=== PATIENT | male | born 1930 | race Caucasian/White ===

== ENCOUNTER → 2016-10-12 | Outpatient (CLI) | payer OTHER ==
[~2016-10-12] MED LIST: ACET1TAB84 PO; CMD1 PO; CMD4 PO; CSPOPS OPB; CYAN10005 PO; DLN100 PO; DORZ1SOL OPB; FURO80TA63 PO; LISI-725 PO; METO50TA7 PO; MULT-506 PO; POTA-335 PO; [UNRECOGNIZED DRUG - CODE] PO
[2016-10-12 09:56] LABS: HEMATOCRIT 39.3 % (42-52); MEAN CELL VOLUME 94.2 fL (80-100); MEAN CORPUSCULAR HEMOGLOBIN 30.7 pg (25-34); MEAN CORPUSCULAR HGB CONC 32.6 g/dl (32-36); MEAN PLATELET VOLUME 10.4 fL (7.4-10.4); PLATELET COUNT 174 K/uL (130-400); RED BLOOD COUNT 4.17 M/uL (4.7-6.1); WHITE BLOOD COUNT 7.64 K/uL (4.8-10.8)
[2016-10-12 10:58] LABS: BLOOD UREA NITROGEN 48 mg/dl (7-18); BUN/CREATININE RATIO 29.9 (10-20); CALCIUM 8.2 mg/dl (8.5-10.1); CARBON DIOXIDE 25 mmol/L (21-32); CHLORIDE 111 mmol/L (98-107); GLUCOSE 96 mg/dl (70-99); POTASSIUM 5.5 mmol/L (3.5-5.1); SODIUM 142 mmol/L (136-145)
[2016-10-12 15:22] LABS: URINE PROTIEN/CREAT RATIO 0.2 (0-0.2); URINE TOTAL PROTEIN 12.5 mg/dl (0-11.9)
== END | disposition home or self-care (01) ==
LOC: C.LAB1850 09:11
PROVIDERS: ATTEND Internal Medicine Nephrology
DX: N18.3 Chronic kidney disease, stage 3 (moderate) (principal); E55.9 Vitamin D deficiency, unspecified

== ENCOUNTER → 2017-02-06 | Outpatient (CLI) | payer OTHER ==
[2017-02-06 09:40] LABS: HEMATOCRIT 39.4 % (42-52); MEAN CORPUSCULAR HEMOGLOBIN 30.5 pg (25-34); MEAN CORPUSCULAR HGB CONC 32.5 g/dl (32-36); MEAN PLATELET VOLUME 10.7 fL (7.4-10.4); PLATELET COUNT 184 K/uL (130-400); RED BLOOD COUNT 4.19 M/uL (4.7-6.1)
[2017-02-06 10:11] LABS: ALT/SGPT 29 U/L (12-78); BLOOD UREA NITROGEN 38 mg/dl (7-18); BUN/CREATININE RATIO 28.9 (10-20); CALCIUM 8.2 mg/dl (8.5-10.1); CARBON DIOXIDE 26 mmol/L (21-32); CHLORIDE 106 mmol/L (98-107); GLUCOSE 66 mg/dl (70-99); POTASSIUM 4.9 mmol/L (3.5-5.1); SODIUM 139 mmol/L (136-145)
[2017-02-06 10:14] LABS: ALB/GLOB RATIO 0.8 (0.9-2); ALKALINE PHOSPHATASE 162 U/L (45-117); AST/SGOT 22 U/L (15-37)
[2017-02-06 10:41] LABS: URINE APPEARANCE CLEAR (CLEAR); URINE BILIRUBIN NEG (NEG); URINE COLOR YELLOW; URINE EPITHELIAL CELL AUTO 0-5 /lpf (0-5); URINE NITRITE NEG (NEG); URINE PH 6.5 (4.5-7.5); URINE SPECIFIC GRAVITY 1.011 (1.000-1.030); UROBILINOGEN NEG (NEG)
[2017-02-06 11:00] LABS: MANUAL MICROSCOPIC REQUIRED? NO; REVIEW REQ? NO
[2017-02-06 11:05] LABS: URINE PROTIEN/CREAT RATIO 0.2 (0-0.2); URINE TOTAL PROTEIN 6.7 mg/dl (0-11.9)
== END | disposition home or self-care (01) ==
LOC: C.LAB1850 08:24
PROVIDERS: ATTEND Internal Medicine Nephrology
DX: I12.9 Hypertensive chronic kidney disease with stage 1 through stage 4 chronic kidney disease, or unspecified chronic kidney disease (principal); N18.3 Chronic kidney disease, stage 3 (moderate); E55.9 Vitamin D deficiency, unspecified; N25.81 Secondary hyperparathyroidism of renal origin; R60.9 Edema, unspecified

== ENCOUNTER → 2017-08-22 | Outpatient (CLI) | payer OTHER ==
[~2017-08-22] MED LIST changes: -CMD4 PO; -METO50TA7 PO; +METO50TA8 PO
--- NOTE | 2017-08-22 13:13 | DIAGNOSTIC IMAGING REPORT ---
CT HEAD WITHOUT CONTRAST (CT) CLINICAL HISTORY: I48.91 Atrial [id number] Weakness of left side of [id number] COMPARISON STUDY: December 2007 TECHNIQUE: Axial CT of the brain is performed from the vertex to the skull base. IV contrast was not administered for this examination. A dose lowering technique was utilized adhering to the principles of ALARA. CT DOSE: 638.56 mGycm FINDINGS: No intra or extra-axial mass lesions are visualized. There is no CT evidence of acute cortical infarction. There is no evidence of midline shift. There is no acute hemorrhage. No calvarial fractures are visualized. There are patchy white matter hypodensities likely on a small vessel basis. There is no evidence of pathologic ventricular dilatation. There is no evidence of acute sinusitis IMPRESSION: No acute intracranial findings Electronically signed by: Deyvi Cheatham M.D. 08/22/2017 1:11 PM Dictated Date/Time: 08/22/2017 1:02 PM
== END | disposition home or self-care (01) ==
LOC: C.CTS 12:47
PROVIDERS: ATTEND Internal Medicine
DX: I48.91 Unspecified atrial fibrillation (principal); R53.1 Weakness; Z79.01 Long term (current) use of anticoagulants

== ENCOUNTER 2017-09-20 08:51 | Emergency (ER) | payer OTHER ==
[~2017-09-20] VITALS: Ht 172.7 cm; Wt 97.6 kg
[2017-09-20 09:05] VITALS: TEMP 36.5; O2SAT 95
[2017-09-20 09:47] LABS: BASO % 0.1 %; BASO ABS # 0.01 K/uL (0-0.2); EOS % 1.6 %; EOS ABS # 0.12 K/uL (0-0.5); HEMATOCRIT 38.3 % (42-52); HEMOGLOBIN 12.6 g/dL (14.0-18.0); IG# 0.02 K/uL (0.00-0.02); LYMPH % 27.9 %; LYMPH ABS # 2.12 K/uL (1.2-3.4); MEAN CELL VOLUME 94.1 fL (80-100); MEAN CORPUSCULAR HGB CONC 32.9 g/dl (32-36); MEAN PLATELET VOLUME 10.4 fL (7.4-10.4); MONO % 9.2 %; NEUT % 60.9 %; NEUT ABS # 4.64 K/uL (1.4-6.5); PLATELET COUNT 179 K/uL (130-400); RED CELL DISTRIBUTION WIDTH CV 15.6 % (11.5-14.5); WHITE BLOOD COUNT 7.61 K/uL (4.8-10.8)
[2017-09-20 09:55] LABS: INR 1.7 (0.9-1.1); PTT PATIENT 29.6 SECONDS (21.0-31.0)
[2017-09-20] MEDS ORDERED: DORZ2SOL17 OPB (09:56)
[2017-09-20] MEDS ORDERED: BCTROWC EXT (09:56)
[2017-09-20] MEDS ORDERED: POTA20TA16 PO (09:56)
[2017-09-20] MEDS ORDERED: DLN100 PO ×2 (09:56)
--- NOTE | 2017-09-20 10:00 | DIAGNOSTIC IMAGING REPORT ---
CT HEAD WITHOUT CONTRAST (CT) CLINICAL HISTORY: Altered mental status COMPARISON STUDY: August 22, 2017 TECHNIQUE: Axial CT of the brain is performed from the vertex to the skull base. IV contrast was not administered for this examination. A dose lowering technique was utilized adhering to the principles of ALARA. CT DOSE: 537.48 mGy.cm FINDINGS: No intra or extra-axial mass lesions are visualized. There is no CT evidence of acute cortical infarction. There is no evidence of midline shift. There is no acute hemorrhage. No calvarial fractures are visualized. There are patchy white matter hypodensities likely on a small vessel basis. There is no evidence of pathologic ventricular dilatation. There is no evidence of acute sinusitis IMPRESSION: No acute intracranial findings Electronically signed by: Deyvi Cheatham M.D. 09/20/2017 9:58 AM Dictated Date/Time: 09/20/2017 9:56 AM
[2017-09-20 10:08] LABS: ALBUMIN 3.3 gm/dl (3.4-5.0); ALT/SGPT 28 U/L (12-78); AST/SGOT 17 U/L (15-37); BLOOD UREA NITROGEN 48 mg/dl (7-18); CALCIUM 8.2 mg/dl (8.5-10.1); CARBON DIOXIDE 24 mmol/L (21-32); CREATININE 1.31 mg/dl (0.60-1.40); GLUCOSE 122 mg/dl (70-99); LIPASE 201 U/L (73-393); POTASSIUM 5.2 mmol/L (3.5-5.1); SODIUM 140 mmol/L (136-145)
[2017-09-20 10:13] LABS: ALKALINE PHOSPHATASE 172 U/L (45-117); CKMB 3.7 ng/ml (0.5-3.6); PHOSPHORUS 3.5 mg/dl (2.5-4.9); TOTAL PROTEIN 7.7 gm/dl (6.4-8.2)
--- NOTE | 2017-09-20 10:15 | EMERGENCY ROOM VISIT NOTE ---
History Report prepared by Hui: Zo Modi Under the Supervision of: Dr. Reji Somers D.O. First contact with patient: 09:02 Chief Complaint: SHORTNESS OF BREATH Stated Complaint: RESPIRATORY/EDEMA Nursing Triage Summary: pt presents to room a12b via als from home. pt reports shortness of breath. pt denies any pain. pt has hx of stroke affecting his left side. left lower extremity displays +2 pitting edema. History of Present Illness The patient is a 86 year old male who presents to the Emergency Room with complaints of shortness of breath. The patient is somewhat slow to answer questions. I am unsure if this represents some sort of sequelae from his previous stroke or if he has underlying dementia. The patient was sent from home. Apparently he has visiting nurses. They thought the patient was having shortness of breath. He does have some lower extremity edema but I am unsure if this is old or new. History was limited to some degree. The patient does not offer any complaints at this time. 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 Review of Systems ROS is limited secondary to the patient being a poor historian. Past Medical & Surgical Medical Problems: (1) H/O blood clots (2) HTN (hypertension) Family History Hypertension Social History Smoking Status: Unknown if Ever Smoked Alcohol Use: none Marital Status: Occupation Status: retired Current/Historical Medications Scheduled Cyanocobalamin (Vitamin B-12), 1,000 MCG PO DAILY Dorzolamide Hcl (Trusopt Oph), 1 DROPS OPB BID Furosemide (Lasix), 80 MG PO DAILY Metoprolol Succ (Toprol Xl) (Toprol-Xl), 50 MG PO DAILY Multivitamin (Multivitamin), 1 TAB PO DAILY Mupirocin (Bactroban 2% Oint), 1 APPLN EXT BID Phenytoin Sodium (Dilantin), 200 CAP PO QAM Phenytoin Sodium (Dilantin), 100 MG PO QPM Potassium Ext Rel (Klor-Con), 40 MEQ PO BID Warfarin Sod (Coumadin), 3 MG PO DAILY Scheduled PRN Acetaminophen (Tylenol Arthritis Ext Rel), 650 MG PO Q8H PRN for Pain Allergies Coded Allergies: No Known Allergies (Verified , 09/20/17) Uncoded Allergies: GENERIC MEDICATIONS (Allergy, Severe, RASH, 12/21/07) Physical Exam Vital Signs Date Time Temp Pulse Resp B/P (MAP) Pulse Ox O2 Delivery O2 Flow Rate FiO2 09/20/17 15:25 79 20 96 09/20/17 14:34 78 22 124/81 93 Room Air 09/20/17 13:37 62 18 94/58 96 Room Air 09/20/17 13:03 63 09/20/17 12:19 64 18 108/80 96 Room Air 09/20/17 11:55 93 Room Air 09/20/17 11:13 73 24 104/75 93 Room Air 09/20/17 10:02 63 106/72 94 Room Air 09/20/17 09:05 95 Room Air 09/20/17 09:05 36.5 68 26 118/72 95 Room Air 09/20/17 09:05 95 Room Air 09/20/17 09:02 61 Physical Exam GENERAL: Patient awake but slow to answer questions. He follows commands and does not appear to be in pain. EYES: The conjunctivae are clear. The pupils are round and reactive. EARS, NOSE, MOUTH AND THROAT: The nose is without any evidence of any deformity. Mucous membranes are moist tongue is midline NECK: The neck is nontender and supple. RESPIRATORY: Shallow respirations were noted. There is no tachypnea or conversational dyspnea. The patient intermittently will side. CARDIOVASCULAR: Irregular rhythm was noted to auscultation no definite murmurs appreciated. GASTROINTESTINAL: The abdomen is soft. Bowel sounds are present in all quadrants. Abdomen is nontender MUSCULOSKELETAL/EXTREMITIES: There is no evidence of gross deformity full range of motion is noted in the hips and shoulders SKIN: There is pedal edema bilaterally left greater than right. There is no erythema. NEUROLOGIC: Patient is awake and oriented to person place but not time or situation. Patient has left-sided weakness. There is no definite facial droop noted. Speech is slow and slurred. Medical Decision & Procedures ER Provider Diagnostic Interpretation: Radiology results as stated below per my review and radiologist interpretation: CT HEAD WITHOUT CONTRAST (CT) CLINICAL HISTORY: Altered mental status COMPARISON STUDY: August 22, 2017 TECHNIQUE: Axial CT of the brain is performed from the vertex to the skull base. IV contrast was not administered for this examination. A dose lowering technique was utilized adhering to the principles of ALARA. CT DOSE: 537.48 mGy.cm FINDINGS: No intra or extra-axial mass lesions are visualized. There is no CT evidence of acute cortical infarction. There is no evidence of midline shift. There is no acute hemorrhage. No calvarial fractures are visualized. There are patchy white matter hypodensities likely on a small vessel basis. There is no evidence of pathologic ventricular dilatation. There is no evidence of acute sinusitis IMPRESSION: No acute intracranial findings Electronically signed by: Deyvi Cheatham M.D. 09/20/2017 9:58 AM Dictated Date/Time: 09/20/2017 9:56 AM CHEST ONE VIEW PORTABLE CLINICAL HISTORY: Sepsis COMPARISON STUDY: Chest radiograph December 24, 2017. 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 Moderate elevation of the left hemidiaphragm has increased since exam of December 25, 2007. Mild left basilar opacity favors atelectasis. There is mild to moderate cardiomegaly without evidence for pulmonary edema. Minimal right lower lung opacity favors atelectasis. There is no radiographic evidence of pneumonia. There may be calcified left pleural plaques. IMPRESSION: 1. Bibasilar opacities which favor atelectasis. 2. Increase in elevation of the left hemidiaphragm since exam of December 25, 2007. 3. Mild to moderate cardiomegaly without evidence for pulmonary edema. Electronically signed by: Mark Alston M.D. 09/20/2017 10:17 AM Dictated Date/Time: 09/20/2017 10:[address] ANGIOGRAM OF THE CHEST CLINICAL HISTORY: Atypical chest pain COMPARISON STUDY: Chest x-ray dated 09/20/2017 TECHNIQUE: Following the IV administration of 119 mL of Optiray-320, CT angiogram of the thorax was performed from the thoracic inlet to the lung bases utilizing the pulmonary embolus protocol. Images are reviewed in the axial, sagittal, and coronal planes. IV contrast was administered without complication. MIP imaging was performed. A dose lowering technique was utilized adhering to the principles of ALARA. CT DOSE: 750.58 mGy.cm FINDINGS: No pathologically enlarged axillary mediastinal or hilar lymph nodes were visualized. There is mild ectasia of the ascending thoracic aorta which measures 4 cm There is streak artifact from bilateral shoulder arthroplasties. There are no filling defects to indicate acute pulmonary embolism. No pleural effusions are visualized. There is elevation left hemidiaphragm There are left lower lobe atelectatic changes. There are no areas of pulmonary consolidation suspicious for pneumonia. Evaluation the lung parenchyma is limited due to respiratory motion artifact. There are few scattered granulomatous calcifications present. IMPRESSION: 1. No evidence of acute pulmonary embolism 2. Moderate elevation left hemidiaphragm 3. Left basilar atelectasis. No findings concerning for pneumonia. Electronically signed by: Deyvi Cheatham M.D. 09/20/2017 11:19 AM Dictated Date/Time: 09/20/2017 11:11 AM Laboratory Results 09/20/17 09:26 Red Blood Count 4.07, Mean Corpuscular Volume 94.1, Mean Corpuscular Hemoglobin 31.0, Mean Corpuscular Hemoglobin Concent 32.9, Mean Platelet Volume 10.4, Neutrophils (%) (Auto) 60.9, Lymphocytes (%) (Auto) 27.9, Monocytes (%) (Auto) 9.2, Eosinophils (%) (Auto) 1.6, Basophils (%) (Auto) 0.1, Neutrophils # (Auto) 4.64, Lymphocytes # (Auto) 2.12, Monocytes # (Auto) 0.70, Eosinophils # (Auto) 0.12, Basophils # (Auto) 0.01 09/20/17 09:26 Test 09/20/17 09:26 09/20/17 09:27 09/20/17 09:32 09/20/17 09:35 White Blood Count 7.61 K/uL (4.8-10.8) Red Blood Count 4.07 M/uL (4.7-6.1) Hemoglobin 12.6 g/dL (14.0-18.0) Hematocrit 38.3 % (42-52) Mean Corpuscular Volume 94.1 fL (80-100) Mean Corpuscular Hemoglobin 31.0 pg (25-34) Mean Corpuscular Hemoglobin Concent 32.9 g/dl (32-36) Platelet Count 179 K/uL (130-400) Mean Platelet Volume 10.4 fL (7.4-10.4) Neutrophils (%) (Auto) 60.9 % Lymphocytes (%) (Auto) 27.9 % Monocytes (%) (Auto) 9.2 % Eosinophils (%) (Auto) 1.6 % Basophils (%) (Auto) 0.1 % Neutrophils # (Auto) 4.64 K/uL (1.4-6.5) Lymphocytes # (Auto) 2.12 K/uL (1.2-3.4) Monocytes # (Auto) 0.70 K/uL (0.11-0.59) Eosinophils # (Auto) 0.12 K/uL (0-0.5) Basophils # (Auto) 0.01 K/uL (0-0.2) RDW Standard Deviation 54.0 fL (36.4-46.3) RDW Coefficient of Variation 15.6 % (11.5-14.5) Immature Granulocyte % (Auto) 0.3 % Immature Granulocyte # (Auto) 0.02 K/uL (0.00-0.02) Erythrocyte Sedimentation Rate 26 mm/hr (0-14) Prothrombin Time 18.1 SECONDS (9.0-12.0) Prothromb Time International Ratio 1.7 (0.9-1.1) Activated Partial Thromboplast Time 29.6 SECONDS (21.0-31.0) Partial Thromboplastin Ratio 1.1 Venous Blood pH 7.33 (7.36-7.41) Venous Blood Partial Pressure CO2 44 mmHg (38.0-50.0) Venous Blood Partial Pressure O2 49 mmHg Venous Blood HCO3 23 mmol/L Venous Blood Oxygen Saturation 81.5 % Venous Blood Base Excess -3.2 mEq/L Anion Gap 3.0 mmol/L (3-11) Est Creatinine Clear Calc Drug Dose 45.0 ml/min Estimated GFR () 56.3 Estimated GFR (Non- 48.6 BUN/Creatinine Ratio 36.3 (10-20) Calcium Level 8.2 mg/dl (8.5-10.1) Phosphorus Level 3.5 mg/dl (2.5-4.9) Magnesium Level 2.4 mg/dl (1.8-2.4) Total Bilirubin 0.3 mg/dl (0.2-1) Aspartate Amino Transf (AST/SGOT) 17 U/L (15-37) Alanine Aminotransferase (ALT/SGPT) 28 U/L (12-78) Alkaline Phosphatase 172 U/L (45-117) Total Creatine Kinase 65 U/L (39-308) Creatine Kinase MB 3.7 ng/ml (0.5-3.6) Creatine Kinase MB Ratio 5.7 (0-3.0) Troponin I < 0.015 ng/ml (0-0.045) C-Reactive Protein 2.00 mg/dl (0-0.29) Pro-B-Type Natriuretic Peptide 1715 pg/ml (0-1800) Total Protein 7.7 gm/dl (6.4-8.2) Albumin 3.3 gm/dl (3.4-5.0) Globulin 4.4 gm/dl (2.5-4.0) Albumin/Globulin Ratio 0.7 (0.9-2) Lipase 201 U/L (73-393) Phenytoin (Dilantin) Level 21.8 mcg/mL (10-20) Bedside Lactic Acid Venous 1.02 mmol/L (0.90-1.70) Urine Color YELLOW Urine Appearance CLEAR (CLEAR) Urine pH 6.0 (4.5-7.5) Urine Specific [place] 1.016 (1.000-1.030) Urine Protein NEG (NEG) Urine Glucose (UA) NEG (NEG) Urine Ketones NEG (NEG) Urine Occult Blood NEG (NEG) Urine Nitrite NEG (NEG) Urine Bilirubin NEG (NEG) Urine Urobilinogen NEG (NEG) Urine Leukocyte Esterase NEG (NEG) Urine WBC (Auto) 0 /hpf (0-5) Urine RBC (Auto) 0-4 /hpf (0-4) Urine Hyaline Casts (Auto) 1-5 /lpf (0-5) Urine Epithelial Cells (Auto) 5-10 /lpf (0-5) Urine Bacteria (Auto) NEG (NEG) Laboratory results per my review. Medications Administered Medications (Trade) Dose Ordered Sig/Shani Route Start Time Stop Time Status Last Admin Dose Admin Acetaminophen (Tylenol Tab) 1,000 mg NOW STAT PO 09/20/17 10:26 09/20/17 10:27 DC 09/20/17 10:34 1,000 MG Sodium Chloride 500 ml @ 999 mls/hr Q31M STAT IV 09/20/17 10:28 09/20/17 10:58 DC 09/20/17 10:35 999 MLS/HR Levofloxacin (Levaquin / D5W) 750 mg NOW STAT IV 09/20/17 12:10 09/20/17 12:12 DC 09/20/17 12:19 750 MG Oxycodone HCl (Roxicodone Immediate Rel Tab) 5 mg NOW STAT PO 09/20/17 12:27 09/20/17 12:28 DC 09/20/17 12:33 5 MG ECG Per My Interpretation Indication: altered mental status Rate (beats per minute): 60 Rhythm: atrial fibrillation Findings: no acute ischemic change, no ectopy Change: no significant change (12/21/2007) ED Course 0902: The patient was evaluated in room A12B. A complete history and physical examination were performed. 1023: I reevaluated the patient. His family was at the bedside. They are worried because the patient appears to be weaker than usual. 1026: Tylenol 1000 mg PO 1028: NSS 500 ml @ 999 mls/hr IV 1203: Dr. Cook was notified of the patient and will evaluate the patient for further management with the [facility]. 1210: Levofloxacin 750 mg IV 1217: I reassessed the patient at this time. He is resting comfortably. I discussed the results and treatment plan with the patient and his family. I answered all pertaining questions that they had. They expressed understanding and verbalized agreement. 1227: Oxycodone HCl 5 mg PO 1243: I spoke with Dr. Cook. We discussed the case. The patient will be evaluated by the [facility] for further management. Medical Decision Prior records/ancillary studies reviewed and summarized above. Nursing notes reviewed. The patient's history was concerning for altered mental status. Differential diagnosis: Etiologies such as metabolic, infection, hypoglycemia, electrolyte abnormalities , cardiac sources, intracerebral event, toxicologic, neurologic, as well as others were entertained. The patient is an 86-year-old male who presented to the emergency department for multiple complaints. The patient gives most of the history but his family members also give part of the history. Apparently the patient has been having trouble with shortness of breath. He is also been noticing extremity swelling. The patient had right sided shaking and some weakness according to his significant other. He does have a history of left-sided weakness from a previous stroke. I discussed patient's laboratory and radiographic studies with him. He does appear to have some degree of air hunger. His oxygen saturation was acceptable. Despite this a CT the chest was ordered to ensure this did not represent a pulmonary embolism. I discussed patient's laboratory and radiographic studies with him and his family members. I also discussed his case with the on-call [facility] hospitalist group. We reviewed the case together and at this time he does not meet specific criteria for admission. He was evaluated by the emergency department case maker. Other options were offered to the patient and his family but at this time they would prefer to take the patient home. I had a long discussion with the patient and his family about what sort of things to watch out for specifically worsening weakness fevers facial drooping or any other worrisome symptoms which they felt the patient would need to come back to the emergency department for. Otherwise I did advise that they follow up with the primary care physician as soon as possible for further evaluation. Medication Reconcilliation Current Medication List: was personally reviewed by me Blood Pressure Screening Patient's blood pressure: Normal blood pressure Consults Time Called: 1200 Consulting Physician: Dr. Cook Returned Call: [address] Cook. We discussed the case. The patient will be evaluated by the [facility] for further management. Impression Primary Impression: SOB (shortness of breath) Additional Impressions: Hypoxia Right sided weakness Scribe Attestation The scribe's documentation has been prepared under my direction and personally reviewed by me in its entirety. I confirm that the note above accurately reflects all work, treatment, procedures, and medical decision making performed by me. Departure Information Dispostion Being Evaluated By Hospitalist Referrals Cayetano Conway M.D. (PCP) Patient Instructions My [facility] Problem Qualifiers
--- NOTE | 2017-09-20 10:18 | DIAGNOSTIC IMAGING REPORT ---
CHEST ONE VIEW PORTABLE CLINICAL HISTORY: Sepsis COMPARISON STUDY: Chest radiograph December 24, 2017. 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 Moderate elevation of the left hemidiaphragm has increased since exam of December 25, 2007. Mild left basilar opacity favors atelectasis. There is mild to moderate cardiomegaly without evidence for pulmonary edema. Minimal right lower lung opacity favors atelectasis. There is no radiographic evidence of pneumonia. There may be calcified left pleural plaques. IMPRESSION: 1. Bibasilar opacities which favor atelectasis. 2. Increase in elevation of the left hemidiaphragm since exam of December 25, 2007. 3. Mild to moderate cardiomegaly without evidence for pulmonary edema. Electronically signed by: Mark Alston M.D. 09/20/2017 10:17 AM Dictated Date/Time: 09/20/2017 10:15 AM
[2017-09-20] MEDS ORDERED: ACETAMINOPHEN 500 MG TAB PO STA (10:26)
[2017-09-20] MEDS ORDERED: SODIUM CHLORIDE 0.9% 500ML 500 ML IV STA (10:28)
[2017-09-20] MEDS ORDERED: SODIUM CHLORIDE 0.9% 1000ML 1,000 ML IV STA (10:28)
[2017-09-20] MEDS ORDERED: OPTIRAY 320 IV PRN (10:45)
--- NOTE | 2017-09-20 11:20 | DIAGNOSTIC IMAGING REPORT ---
CT ANGIOGRAM OF THE CHEST CLINICAL HISTORY: Atypical chest pain COMPARISON STUDY: Chest x-ray dated 09/20/2017 TECHNIQUE: Following the IV administration of 119 mL of Optiray-320, CT angiogram of the thorax was performed from the thoracic inlet to the lung bases utilizing the pulmonary embolus protocol. Images are reviewed in the axial, sagittal, and coronal planes. IV contrast was administered without complication. MIP imaging was performed. A dose lowering technique was utilized adhering to the principles of ALARA. CT DOSE: 750.58 mGy.cm FINDINGS: No pathologically enlarged axillary mediastinal or hilar lymph nodes were visualized. There is mild ectasia of the ascending thoracic aorta which measures 4 cm There is streak artifact from bilateral shoulder arthroplasties. There are no filling defects to indicate acute pulmonary embolism. No pleural effusions are visualized. There is elevation left hemidiaphragm There are left lower lobe atelectatic changes. There are no areas of pulmonary consolidation suspicious for pneumonia. Evaluation the lung parenchyma is limited due to respiratory motion artifact. There are few scattered granulomatous calcifications present. IMPRESSION: 1. No evidence of acute pulmonary embolism 2. Moderate elevation left hemidiaphragm 3. Left basilar atelectasis. No findings concerning for pneumonia. Electronically signed by: Deyvi Cheatham M.D. 09/20/2017 11:19 AM Dictated Date/Time: 09/20/2017 11:11 AM
[2017-09-20 11:55] VITALS: O2SAT 93; Ht 172.7 cm; Wt 97.6 kg
[2017-09-20] MEDS ORDERED: LEVAQUIN 750MG / 150ML D5W IV STA (12:10)
[2017-09-20] MEDS ORDERED: OXYCODONE HCL IR 5 MG TAB (IMMEDIATE RELEASE) PO STA (12:27)
[2017-09-20 14:34] VITALS: BP 124/81
[2017-09-20 15:25] VITALS: PULSE 79; O2SAT 96
== END 2017-09-20 15:23 | disposition home or self-care (01) ==
LOC: EDBD 08:51 → C.EDA 08:53
DX: R06.02 Shortness of breath (principal); R09.02 Hypoxemia; M62.81 Muscle weakness (generalized); R60.0 Localized edema; I10 Essential (primary) hypertension; Z86.718 Personal history of other venous thrombosis and embolism; Z82.49 Family history of ischemic heart disease and other diseases of the circulatory system; Z79.01 Long term (current) use of anticoagulants

== ENCOUNTER 2017-10-17 16:05 | Inpatient (IN) | payer OTHER ==
[~2017-10-17] VITALS: Ht 177.8 cm; Wt 111.7 kg
[~2017-10-17 16:05] MED LIST changes: +BCTROWC TOP; -CSPOPS OPB; -DORZ1SOL OPB; +DORZ2SOL17 OPB; -LISI-725 PO; -POTA-335 PO; +POTA-639 PO; -[UNRECOGNIZED DRUG - CODE] PO
--- NOTE | 2017-10-17 17:12 | EMERGENCY ROOM VISIT NOTE ---
History Report prepared by Hui: Vasiliy Snell Under the Supervision of: Dr. Leatha Henry D.O. First contact with patient: 16:27 Chief Complaint: HEAD INJURY (MINOR) Stated Complaint: SYNCOPE, FALL, FACIAL LAC. History of Present Illness The patient is an 86 year old male who presents to the Emergency Room with complaints of a sudden fall occurring prior to arrival. The patient's caregiver states that the patient was sitting in his chair at home, and he was dozing off. He then raised his head up, and then he fell forward out of his chair, though he was not even trying to stand up. The patient states that he does not remember falling, and he is currently complaining of neck pain, wrist pain, and left eye pain. The family states that the patient has not been urinating very well recently for the past 2-3 weeks, and he drank 48 ounces of fluid, and he has only had 6 ounces of urine output today. The patient has a history of a stroke and A-fib, and he is currently on Coumadin. He additionally has a seizure 16-18 years ago, though he has not had regular seizures since then. The patient's family additionally reports that the patient has been having increased leg swelling recently with ulcers, and he is not very mobile. He has a history of a right hip replacement. Source of History: patient, family, caregiver Onset: prior to arrival Position: head, other (global) Quality: other (fall) Timing: other (sudden) Associated Symptoms: + neck pain Note: Associated symptoms: wrist pain, decreased urine output, and leg swelling Review of Systems See HPI for pertinent positives & negatives. A total of 10 systems reviewed and were otherwise negative. Past Medical & Surgical Medical Problems: (1) Ambulatory dysfunction (2) Cellulitis of right lower extremity (3) Fall from chair (4) H/O blood clots (5) HTN (hypertension) Family History Hypertension Social History Smoking Status: Never Smoker Alcohol Use: none Marital Status: Occupation Status: retired Current/Historical Medications Scheduled Cyanocobalamin (Vitamin B-12), 1,000 MCG PO DAILY Dorzolamide Hcl (Trusopt Oph), 1 DROP OPB BID Furosemide (Lasix), 80 MG PO DAILY Metoprolol Succ (Toprol Xl) (Toprol-Xl), 50 MG PO DAILY Multivitamin (Multivitamin), 1 TAB PO DAILY Mupirocin (Bactroban 2% Oint), 1 APPLN TOP BID Phenytoin Sodium (Dilantin), 200 MG PO QAM Phenytoin Sodium (Dilantin), 100 MG PO QPM Potassium Ext Rel (Klor-Con), 40 MEQ PO BID Warfarin Sod (Coumadin), 1 MG PO UD Scheduled PRN Acetaminophen (Tylenol Arthritis Ext Rel), 650 MG PO Q8H PRN for Pain Allergies Coded Allergies: No Known Allergies (Verified , 09/20/17) Uncoded Allergies: GENERIC MEDICATIONS (Allergy, Severe, RASH, 12/21/07) Physical Exam Vital Signs Date Time Temp Pulse Resp B/P (MAP) Pulse Ox O2 Delivery O2 Flow Rate FiO2 10/17/17 23:17 76 24 95/59 97 Nasal Cannula 2.0 10/17/17 22:06 73 20 100/68 96 Nasal Cannula 2.0 10/17/17 21:03 88 19 96/78 94 Nasal Cannula 2.0 10/17/17 20:19 113 10/17/17 19:35 86 20 117/67 95 Nasal Cannula 2.0 10/17/17 18:32 74 26 117/67 97 Nasal Cannula 2.5 10/17/17 16:53 74 24 113/65 97 Nasal Cannula 2.5 10/17/17 16:41 96 Nasal Cannula 2.5 10/17/17 16:38 36.3 78 26 134/81 95 Nasal Cannula 2.5 10/17/17 16:27 22 96 Physical Exam GENERAL: alert, ill appearing, well nourished, no distress, non-toxic, obese HEAD: Gaping 2cm laceration to the medial aspect of the left supraorbital ridge. Otherwise atraumatic. EYE EXAM: normal conjunctiva, PERRL and EOM's grossly intact OROPHARYNX: no exudate, no erythema, lips, buccal mucosa, and tongue normal and mucous membranes are moist NECK: supple, no nuchal rigidity, no adenopathy, non-tender, no step off LUNGS: Clear to auscultation. Normal chest wall mechanics, no w/r/r HEART: no murmurs, S1 normal and S2 normal CHEST: No chest wall tenderness. No crepitus. ABDOMEN: abdomen soft, non-tender, normo-active bowel sounds, no masses, no rebound or guarding. BACK: Back is symmetrical on inspection and there is no deformity, no midline tenderness, no CVA tenderness. SKIN: no rashes and no bruising UPPER EXTREMITIES: upper extremities are grossly normal. LOWER EXTREMITIES: 3+ pitting edema bilaterally with early ulcer formation noted. NEURO EXAM: Normal sensorium, cranial nerves II-XII intact, normal speech, no facial droop, generalized weakness worse in the left than the right. Family states this is an ongoing problem for which she is seeing a neurologist for. Medical Decision & Procedures ER Provider Diagnostic Interpretation: Radiology results have been interpreted by the radiologist and reviewed by me. THORACIC SPINE WITHOUT CT DOSE: HISTORY: Pain. Trauma. CT ANGIOGRAM OF THE CHEST CLINICAL HISTORY: trauma, pain COMPARISON STUDY: Chest x-ray dated 09/20/2017 TECHNIQUE: Following the IV administration of 119 mL of [id number]-320, CT angiogram of the thorax was performed from the thoracic inlet to the lung bases utilizing the pulmonary embolus protocol. Images are reviewed in the axial, sagittal, and coronal planes. IV contrast was administered without complication. MIP imaging was performed. A dose lowering technique was utilized adhering to the principles of ALARA. CT DOSE: FINDINGS: No pathologically enlarged axillary mediastinal or hilar lymph nodes were visualized. There is mild ectasia of the ascending thoracic aorta which measures 4 cm There is streak artifact from bilateral shoulder arthroplasties. There are no filling defects to indicate acute pulmonary embolism. No pleural effusions are visualized. There is elevation left hemidiaphragm There are left lower lobe atelectatic changes. There are no areas of pulmonary consolidation suspicious for pneumonia. Evaluation the lung parenchyma is limited due to respiratory motion artifact. There are few scattered granulomatous calcifications present. IMPRESSION: 1. No evidence of acute pulmonary embolism 2. Moderate elevation left hemidiaphragm 3. Left basilar atelectasis. No findings concerning for pneumonia. Electronically signed by: Hector Mcgowan M.D. 10/17/2017 6:27 PM Dictated Date/Time: 10/17/2017 6:24 PM trauma, pain TECHNIQUE: Multiaxial CT images of the thoracic spine were performed and reformatted in the sagittal and coronal plane without the use of contrast. A dose lowering technique was utilized adhering to the principles of ALARA. COMPARISON: CT chest 10/17/2017 FINDINGS: Several slight compression deformity superior endplate of the mid thoracic region. These appear unchanged from the prior study and is considered pre-existing and/or old. No new compression deformity is identified. No significant subluxation. Degenerative disc change throughout. IMPRESSION: 1. No acute bony abnormality. 2. Several mild compression deformities of the mid thoracic region considered chronic. 3. Moderate degenerative disc change throughout. The above report was generated using voice recognition software. It may contain grammatical, syntax or spelling errors. LUMBAR SPINE WITHOUT CT DOSE: 4900.42 mGy.cm HISTORY: Trauma. Pain. trauma, pain TECHNIQUE: Multiaxial CT images of the lumbar spine were performed and reformatted in the sagittal and coronal plane without the use of contrast. A dose lowering technique was utilized adhering to the principles of ALARA. COMPARISON: None. FINDINGS: Considerable degenerative disc change throughout the entire lumbar region. Vacuum discs throughout. Moderate reactive anterior and posterior osteophytic change. Posterior elements are intact throughout. Moderate degenerative change of the lateral facets. IMPRESSION: Considerable degenerative disc change. No acute bony abnormality. The above report was generated using voice recognition software. It may contain grammatical, syntax or spelling errors. Electronically signed by: Hector Mcgowan M.D. 10/17/2017 6:29 PM Dictated Date/Time: 10/17/2017 6:27 PM HEAD WITHOUT CONTRAST (CT) CLINICAL HISTORY: 86 years-old Male with trauma, anticoagulated. Acute head injury TECHNIQUE: Multiple axial CT images of the head were obtained without contrast. A dose lowering technique was utilized adhering to the principles of ALARA. COMPARISON: CT head 09/20/2017. FINDINGS: No acute intracranial hemorrhage, midline shift, intracranial mass, hydrocephalus, territorial ischemia or abnormal extra-axial collection. Moderate atrophy. Moderate degree of ill-defined low-attenuation within the white matter of the cerebral hemispheres bilaterally suggests chronic microvascular ischemic changes. Senescent calcifications involve the lentiform nuclei bilaterally. The study is mildly motion degraded. Reversal vascular calcifications are seen at the level the skull base. The calvarium is intact. Mild mucoperiosteal thickening of the maxillary and ethmoid sinuses. Soft tissues are unremarkable. Note is made of disconjugate gaze. Thinning of the optic lenses bilaterally suggests prior cataract repair. IMPRESSION: No acute intracranial abnormality. The above report was generated using voice recognition software. It may contain grammatical, syntax or spelling errors. Electronically signed by: Papa Gates M.D. 10/17/2017 6:16 PM Dictated Date/Time: 10/17/2017 6:[address] WITH CONTRAST HISTORY: Acute chest, abdomen and pelvis trauma trauma, pain TECHNIQUE: Multiaxial CT images of the chest, abdomen and pelvis were performed following the intravenous administration of contrast. A dose lowering technique was utilized adhering to the principles of ALARA. COMPARISON: CT lumbar and thoracic spine CT of same day, CTA chest 09/20/2017. FINDINGS: CT CHEST: Streak artifact from bilateral shoulder arthroplasties limits evaluation of the upper thorax. No dominant thyroid nodule or pathologic adenopathy identified. Cardiomegaly with moderate enlargement of the right atrium and right ventricle. Coronary arterial calcifications are noted. No pericardial effusion. Thoracic aorta is normal in both course and caliber. The imaged proximal great vessels appear patent. The opacified pulmonary arterial tree is also unremarkable. There is no pneumothorax or pleural effusion. Chronic left hemidiaphragmatic elevation with left basilar atelectasis/scarring. Pleural calcifications are noted on the left. Scattered calcified granulomas are also noted. Linear subsegmental scarring/atelectasis of the basal right lower lobe. 5 mm area of fissural lymph node is seen on the right, image 165 of series 12. Central airways appear patent. Soft tissues of the chest are unremarkable. Mild bilateral symmetric gynecomastia. The bones appear mildly demineralized. Focally peripherally sclerotic lucent lesion measuring 1.4 cm involves the right aspect of the sternum on image 65, unchanged and indeterminate. This lesion demonstrates nonaggressive features. No acute rib fracture identified. Multilevel degenerative changes about the thoracic spine without acute fracture or subluxation identified. CT ABDOMEN/PELVIS: There is no pneumatosis or pneumoperitoneum. Study is mildly motion degraded. Artifact from right hip arthroplasty limits evaluation of the pelvis. 8 mm low attenuating lesion of the caudate lobe of the liver suggests hepatic cyst. Additional subcentimeter low attenuating lesions of the right hepatic lobe are noted measuring up to 5 mm which are indeterminate and may reflect additional hepatic cysts. There is mild marginal nodularity about the liver without ascites. No intrahepatic biliary ductal dilation. Large gallstone is seen within the gallbladder neck without CT evidence of acute cholecystitis. Spleen is unremarkable. Moderate generalized pancreatic atrophy. Adrenal glands are unremarkable. Mild parenchymal thinning of the kidneys bilaterally. 2.1 cm low attenuating lesion of the superior pole right kidney suggests renal cyst. Renal vascular calcifications are present bilaterally. Mild prostamegaly. Mild bladder wall thickening suggests sequela of chronic bladder outlet obstruction. Moderate calcifications of the aorta without aneurysm. No bulky adenopathy. No bowel obstruction or focal bowel wall thickening. Moderate stool volume of the rectosigmoid colon. Trace free fluid of the dependent pelvis of unknown etiology. Diastases recti with moderate atrophy of the bilateral pelvic musculature. Bones appear intact. Severe facet arthrosis of the lumbar spine. Severe multilevel intervertebral disc space narrowing, endplate spurring and facet arthrosis causing varying degrees of central canal and foraminal narrowing. Severe osteoarthritis about the left hip. No sacral insufficiency fracture. IMPRESSION: 1. No acute intrathoracic, intra-abdominal or intrapelvic abnormality identified. 2. No evidence of acute solid organ injury or fracture. 3. Chronic left hemidiaphragmatic elevation with left basilar scarring. 4. Prior granulomatous disease with calcified pleural plaques again noted within the left hemithorax. 5. Cholelithiasis without CT evidence of acute cholecystitis. 6. Additional findings as above. Electronically signed by: Papa Gates M.D. 10/17/2017 6:39 PM Dictated Date/Time: 10/17/2017 6:25 PM CERVICAL SPINE W/O CLINICAL HISTORY: 86 years-old Male with trauma, pain. Acute posttraumatic neck pain. Acute fall. COMPARISON: The cervical spine 12/21/2007, CT thoracic spine of same day TECHNIQUE: Multiple axial CT images of the cervical spine were obtained without contrast. A dose lowering technique was utilized adhering to the principles of ALARA. FINDINGS: There is a large partially calcified pannus posterior to the odontoid process measuring up to 8 mm in AP dimension, progressed from comparison study. Additionally, there are new erosions of the odontoid process. Chondrocalcinosis of the disc spaces identified. Calcifications of the anterior and posterior longitudinal ligament are also noted. Cystic changes of the vertebral bodies are also noted, largest of which measures 1.5 cm within the C3 vertebral body. Erosive changes are noted involving the endplates and facets, notably the left-sided facets at C3-C4. 3 mm anterolisthesis C3 on C4 likely related to associated facet disease. No definite acute fracture or subluxation. Erosive changes of the C1 occipital articulation are also noted. No acute fracture identified. Large posterior disc osteophyte complex relation are seen at several levels. Evaluation of the central canal and neuroforamen is better conducted by MRI which has greater sensitivity for evaluating the structures. There is multilevel central canal and foraminal narrowing noted. There is incomplete bony fusion involving the posterior arch C1. Lung apices are clear without pneumothorax. Soft tissues are unremarkable. Mastoid air cells and middle ear cavities are clear. Mild mucosal thickening of the maxillary sinuses, left greater than right. IMPRESSION: 1. No acute fracture of the cervical spine identified. 2. 3 mm anterolisthesis C3 on C4 is likely secondary to advanced facet disease at this level. 3. 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 The above report was generated using voice recognition software. It may contain grammatical, syntax or spelling errors. Electronically signed by: Papa Gates M.D. 10/17/2017 6:25 PM Dictated Date/Time: 10/17/2017 6:[address] WITH CONTRAST HISTORY: Acute chest, abdomen and pelvis trauma trauma, pain TECHNIQUE: Multiaxial CT images of the chest, abdomen and pelvis were performed following the intravenous administration of contrast. A dose lowering technique was utilized adhering to the principles of ALARA. COMPARISON: CT lumbar and thoracic spine CT of same day, CTA chest 09/20/2017. FINDINGS: CT CHEST: Streak artifact from bilateral shoulder arthroplasties limits evaluation of the upper thorax. No dominant thyroid nodule or pathologic adenopathy identified. Cardiomegaly with moderate enlargement of the right atrium and right ventricle. Coronary arterial calcifications are noted. No pericardial effusion. Thoracic aorta is normal in both course and caliber. The imaged proximal great vessels appear patent. The opacified pulmonary arterial tree is also unremarkable. There is no pneumothorax or pleural effusion. Chronic left hemidiaphragmatic elevation with left basilar atelectasis/scarring. Pleural calcifications are noted on the left. Scattered calcified granulomas are also noted. Linear subsegmental scarring/atelectasis of the basal right lower lobe. 5 mm area of fissural lymph node is seen on the right, image 165 of series 12. Central airways appear patent. Soft tissues of the chest are unremarkable. Mild bilateral symmetric gynecomastia. The bones appear mildly demineralized. Focally peripherally sclerotic lucent lesion measuring 1.4 cm involves the right aspect of the sternum on image 65, unchanged and indeterminate. This lesion demonstrates nonaggressive features. No acute rib fracture identified. Multilevel degenerative changes about the thoracic spine without acute fracture or subluxation identified. CT ABDOMEN/PELVIS: There is no pneumatosis or pneumoperitoneum. Study is mildly motion degraded. Artifact from right hip arthroplasty limits evaluation of the pelvis. 8 mm low attenuating lesion of the caudate lobe of the liver suggests hepatic cyst. Additional subcentimeter low attenuating lesions of the right hepatic lobe are noted measuring up to 5 mm which are indeterminate and may reflect additional hepatic cysts. There is mild marginal nodularity about the liver without ascites. No intrahepatic biliary ductal dilation. Large gallstone is seen within the gallbladder neck without CT evidence of acute cholecystitis. Spleen is unremarkable. Moderate generalized pancreatic atrophy. Adrenal glands are unremarkable. Mild parenchymal thinning of the kidneys bilaterally. 2.1 cm low attenuating lesion of the superior pole right kidney suggests renal cyst. Renal vascular calcifications are present bilaterally. Mild prostamegaly. Mild bladder wall thickening suggests sequela of chronic bladder outlet obstruction. Moderate calcifications of the aorta without aneurysm. No bulky adenopathy. No bowel obstruction or focal bowel wall thickening. Moderate stool volume of the rectosigmoid colon. Trace free fluid of the dependent pelvis of unknown etiology. Diastases recti with moderate atrophy of the bilateral pelvic musculature. Bones appear intact. Severe facet arthrosis of the lumbar spine. Severe multilevel intervertebral disc space narrowing, endplate spurring and facet arthrosis causing varying degrees of central canal and foraminal narrowing. Severe osteoarthritis about the left hip. No sacral insufficiency fracture. IMPRESSION: 1. No acute intrathoracic, intra-abdominal or intrapelvic abnormality identified. 2. No evidence of acute solid organ injury or fracture. 3. Chronic left hemidiaphragmatic elevation with left basilar scarring. 4. Prior granulomatous disease with calcified pleural plaques again noted within the left hemithorax. 5. Cholelithiasis without CT evidence of acute cholecystitis. 6. Additional findings as above. Electronically signed by: Papa Gates M.D. 10/17/2017 6:39 PM Dictated Date/Time: 10/17/2017 6:25 PM Laboratory Results 10/17/17 16:55 Red Blood Count 4.17, Mean Corpuscular Volume 92.6, Mean Corpuscular Hemoglobin 30.9, Mean Corpuscular Hemoglobin Concent 33.4, Mean Platelet Volume 10.4, Neutrophils (%) (Auto) 64.5, Lymphocytes (%) (Auto) 25.2, Monocytes (%) (Auto) 7.6, Eosinophils (%) (Auto) 2.3, Basophils (%) (Auto) 0.1, Neutrophils # (Auto) 6.23, Lymphocytes # (Auto) 2.43, Monocytes # (Auto) 0.73, Eosinophils # (Auto) 0.22, Basophils # (Auto) 0.01 10/17/17 16:55 Test 10/17/17 16:55 10/17/17 17:53 10/17/17 20:40 White Blood Count 9.65 K/uL (4.8-10.8) Red Blood Count 4.17 M/uL (4.7-6.1) Hemoglobin 12.9 g/dL (14.0-18.0) Hematocrit 38.6 % (42-52) Mean Corpuscular Volume 92.6 fL (80-100) Mean Corpuscular Hemoglobin 30.9 pg (25-34) Mean Corpuscular Hemoglobin Concent 33.4 g/dl (32-36) Platelet Count 185 K/uL (130-400) Mean Platelet Volume 10.4 fL (7.4-10.4) Neutrophils (%) (Auto) 64.5 % Lymphocytes (%) (Auto) 25.2 % Monocytes (%) (Auto) 7.6 % Eosinophils (%) (Auto) 2.3 % Basophils (%) (Auto) 0.1 % Neutrophils # (Auto) 6.23 K/uL (1.4-6.5) Lymphocytes # (Auto) 2.43 K/uL (1.2-3.4) Monocytes # (Auto) 0.73 K/uL (0.11-0.59) Eosinophils # (Auto) 0.22 K/uL (0-0.5) Basophils # (Auto) 0.01 K/uL (0-0.2) RDW Standard Deviation 52.4 fL (36.4-46.3) RDW Coefficient of Variation 15.4 % (11.5-14.5) Immature Granulocyte % (Auto) 0.3 % Immature Granulocyte # (Auto) 0.03 K/uL (0.00-0.02) Prothrombin Time 19.0 SECONDS (9.0-12.0) Prothromb Time International Ratio 1.8 (0.9-1.1) Est Creatinine Clear Calc Drug Dose 42.8 ml/min Estimated GFR () 49.8 Estimated GFR (Non- 43.0 BUN/Creatinine Ratio 50.5 (10-20) Calcium Level 8.0 mg/dl (8.5-10.1) Magnesium Level 2.4 mg/dl (1.8-2.4) Total Bilirubin 0.2 mg/dl (0.2-1) Aspartate Amino Transf (AST/SGOT) 32 U/L (15-37) Alanine Aminotransferase (ALT/SGPT) 47 U/L (12-78) Alkaline Phosphatase 202 U/L (45-117) Troponin I < 0.015 ng/ml (0-0.045) Pro-B-Type Natriuretic Peptide 1212 pg/ml (0-1800) Total Protein 7.9 gm/dl (6.4-8.2) Albumin 3.1 gm/dl (3.4-5.0) Globulin 4.8 gm/dl (2.5-4.0) Albumin/Globulin Ratio 0.6 (0.9-2) Bedside Hemoglobin 13.6 g/dl (14.0-18.0) Bedside Hematocrit 40 % (42-52) Bedside Sodium 139 mEq/L (135-144) Bedside Potassium 5.9 mEq/L (3.3-5.0) Bedside Chloride 107 mEq/L (101-112) Bedside Total CO2 23 mEq/l (24-31) Anion Gap 15.0 mmol/L (16-25) Bedside Blood Urea Nitrogen 68 mg/dl (7-18) Bedside Creatinine 1.5 mg/dl (0.6-1.3) Bedside Glucose (other) 94 mg/dl (70-99) Bedside Ionized Calcium (Roxanne) 1.13 mmol/l (1.12-1.32) Urine Color YELLOW Urine Appearance CLOUDY (CLEAR) Urine pH 5.0 (4.5-7.5) Urine Specific [place] 1.020 (1.000-1.030) Urine Protein NEG (NEG) Urine Glucose (UA) NEG (NEG) Urine Ketones NEG (NEG) Urine Occult Blood 1+ (NEG) Urine Nitrite NEG (NEG) Urine Bilirubin NEG (NEG) Urine Urobilinogen NEG (NEG) Urine Leukocyte Esterase LARGE (NEG) Urine WBC (Auto) >30 /hpf (0-5) Urine RBC (Auto) 0-4 /hpf (0-4) Urine Hyaline Casts (Auto) 5-10 /lpf (0-5) Urine Epithelial Cells (Auto) 20-30 /lpf (0-5) Urine Bacteria (Auto) NEG (NEG) Urine Pathogenic Casts /lpf (0) Laboratory results per my review. Medications Administered Medications (Trade) Dose Ordered Sig/Shani Route Start Time Stop Time Status Last Admin Dose Admin Diphtheria/ Pertussis/Tetanus Vacc (Adacel Inj) 0.5 ml ONCE ONCE IM. 10/17/17 17:45 10/17/17 17:46 DC 10/17/17 18:52 0.5 ML Furosemide (Lasix Inj) 40 mg NOW STAT IV 10/17/17 19:18 10/17/17 19:19 DC 10/17/17 19:33 40 MG Lidocaine/ Epinephrine (Xylocaine/Epine 1% Inj) 20 ml STK-MED ONCE .ROUTE 10/17/17 19:46 10/17/17 19:47 DC 10/17/17 19:46 20 ML Acetaminophen (Tylenol Tab) 650 mg NOW STAT PO 10/17/17 21:05 10/17/17 21:06 DC 10/17/17 21:14 650 MG Ceftriaxone Sodium (Rocephin Inj) 1 gm NOW STAT IV 10/17/17 21:20 10/17/17 21:22 DC 10/17/17 21:35 1 GM Sodium Chloride 250 ml @ 999 mls/hr Q16M STAT IV 10/17/17 21:24 10/17/17 21:39 DC 10/17/17 21:35 999 MLS/HR Acetaminophen (Tylenol Tab) 325 mg NOW STAT PO 10/17/17 23:37 10/17/17 23:45 DC 10/18/17 00:08 325 MG Albumin Human (Albumin 25%) 25 gm NOW STAT IV 10/17/17 23:45 10/17/17 23:46 DC 10/17/17 23:57 25 GM Procedure Location: medial aspect of the left supraorbital ridge Total length: 2cm Complexity: simple Verbal consent was obtained after the risks and benefits were explained, including but not limited to bleeding, scarring, infection, pain, and bone/joint /nerve damage. At this time, the risks of the procedure are less than the risks of NOT performing the procedure. A time out was taken and the correct patient and site identified. The skin was prepped with betadine. The target area was anesthetized with 3 ml of 1% lidocaine with epinephrine. Copious irrigation was performed using sterile saline. The skin was re-prepped with betadine and a sterile field set. The wound was explored for foreign bodies and none found. Examination revealed no injury to deep structures such as tendons, bone, or significant blood vessels. Debridement was not performed. The wound edges were approximated using 4, 5-0 simple interrupted nylon sutures. Hemostasis and excellent approximation was achieved. Antibacterial ointment and a sterile dressing applied. Detailed wound care instructions and signs and symptoms of infection reviewed with the patient. No complications and the patient tolerated the procedure well. ECG Per My Interpretation Indication: syncope Rate (beats per minute): 77 Rhythm: atrial fibrillation Findings: no acute ischemic change, other (normal axis, normal QRS and QTc, low voltage) ED Course 1626: The patient was evaluated in room C1. A complete history and physical exam was performed. 1827: I revaluated the patient, and he looks the same. I updated his . 1936: I performed a laceration as described above. 2016: I reassessed the patient, and he had greater than 500 on bladder scan, so he is getting a catheter. I discussed the treatment plan with the patient and his family, and they are agreeable. He will be evaluated for further management. 2153: I reviewed the patient's case with Dr. Townsend - [facility] Hospitalist. He will evaluate the patient for further management. Medical Decision Differential diagnosis: Etiologies such as vasovagal event, infection, hypoglycemia, electrolyte abnormalities, cardiac sources, intracerebral event, toxicologic, neurologic, fracture, dislocation, intra-abdominal, pneumothorax, intrathoracic, intracranial, as well as other traumatic pathologies were entertained. Patient with complicated medical history and multiple comorbidities. Unclear why patient fell forward out of his chair today, unclear if related to syncopal event. Patient with multiple ongoing problems. Followed by several specialists as well as his primary care provider. Patient brought in due to concern for traumatic injury in the setting of anticoagulation. Patient's INR found to be mildly subtherapeutic, other than the obvious laceration of the patient's face which I repaired at bedside, no new additional traumatic injury was found. Due to patient and family's reported decreased urine output today, bladder scan was also performed which showed greater than 500 ml, a Murray catheter was placed with immediate relief of this. The UA specimen did reveal what appears to be an evolving urinary tract infection, and given the patient's age, comorbidities, presentation today, culture was sent and he was covered with IV Rocephin. I do not suspect bacteremia/sepsis. Patient's family also concerned about worsening lower extremity edema, I feel some of this may be due to lymphedema due to positioning of the patient as he frequently sits in a chair with legs hanging down. No evidence of cellulitis, given his use of anticoagulation I do not suspect DVT, no evidence of acute congestive heart failure based on imaging and serum BNP. Given his concurrent hyperkalemia, and use of Lasix daily, patient was given an additional dose of Lasix. Patient's creatinine close to what appears to be his baseline. No new significant acute kidney injury. Patient complained of persistent shortness of breath here and felt better with supplemental oxygen by nasal cannula, however when turned off patient not overtly hypoxic on room air. Patient complained of persistent neck and back pain, was given Tylenol initially in the emergency room. Family concerned about ability to care for patient at home despite in-house aides 24 7. Case discussed with hospitalist for additional evaluation and management. Head Trauma GCS Score: 15 Medication Reconcilliation Current Medication List: was personally reviewed by me Blood Pressure Screening Patient's blood pressure: Normal blood pressure Consults Time Called: 2124 Consulting Physician: Dr. Cary MIJARES Hospitalist Returned Call: 2153 I reviewed the patient's case with Dr. Cary MIJARES Hospitalist. He will evaluate the patient for further management. Impression Primary Impression: Fall Additional Impressions: Closed head injury Facial laceration Lower extremity edema Dyspnea Chronic renal insufficiency Urinary retention Hyperkalemia Subtherapeutic international normalized ratio (INR) UTI (urinary tract infection) Scribe Attestation The scribe's documentation has been prepared under my direction and personally reviewed by me in its entirety. I confirm that the note above accurately reflects all work, treatment, procedures, and medical decision making performed by me. Departure Information Dispostion Being Evaluated By Hospitalist Cayetano Singh M.D. (PCP) Patient Instructions My [facility] Problem Qualifiers Primary Impression: Fall Encounter type: initial encounter Qualified Codes: W19.XXXA - Unspecified fall, initial encounter Additional Impressions: Closed head injury Encounter type: initial encounter Qualified Codes: S09.90XA - Unspecified injury of head, initial encounter Facial laceration Encounter type: initial encounter Qualified Codes: S01.81XA - Laceration without foreign body of other part of head, initial encounter Dyspnea Dyspnea type: shortness of breath Qualified Codes: R06.02 - Shortness of breath Chronic renal insufficiency Chronic kidney disease stage: unspecified stage Qualified Codes: N18.9 - Chronic kidney disease, unspecified UTI (urinary tract infection) Urinary tract infection type: acute cystitis Hematuria presence: with hematuria Qualified Codes: N30.01 - Acute cystitis with hematuria
[2017-10-17 17:15] LABS: BASO % 0.1 %; BASO ABS # 0.01 K/uL (0-0.2); EOS % 2.3 %; EOS ABS # 0.22 K/uL (0-0.5); HEMATOCRIT 38.6 % (42-52); HEMOGLOBIN 12.9 g/dL (14.0-18.0); IG# 0.03 K/uL (0.00-0.02); LYMPH % 25.2 %; LYMPH ABS # 2.43 K/uL (1.2-3.4); MEAN CELL VOLUME 92.6 fL (80-100); MEAN CORPUSCULAR HEMOGLOBIN 30.9 pg (25-34); MEAN CORPUSCULAR HGB CONC 33.4 g/dl (32-36); MEAN PLATELET VOLUME 10.4 fL (7.4-10.4); MONO % 7.6 %; MONO ABS # 0.73 K/uL (0.11-0.59); NEUT % 64.5 %; NEUT ABS # 6.23 K/uL (1.4-6.5); PLATELET COUNT 185 K/uL (130-400); RED CELL DISTRIBUTION WIDTH CV 15.4 % (11.5-14.5); RED CELL DISTRIBUTION WIDTH SD 52.4 fL (36.4-46.3); WHITE BLOOD COUNT 9.65 K/uL (4.8-10.8)
[2017-10-17 17:24] LABS: INR 1.8 (0.9-1.1)
[2017-10-17] MEDS ORDERED: DIPHTHERIA/TETANUS/PERTUSSIS 0.5 ML SYR/VIAL IM. ONE (17:45)
[2017-10-17 17:48] LABS: ALBUMIN 3.1 gm/dl (3.4-5.0); CREATININE 1.45 mg/dl (0.60-1.40); POTASSIUM 5.9 mmol/L (3.5-5.1)
[2017-10-17 17:51] LABS: TOTAL PROTEIN 7.9 gm/dl (6.4-8.2)
[2017-10-17] MEDS ORDERED: OPTIRAY 320 IV PRN (18:00)
[2017-10-17 18:09] LABS: ISTAT CREATININE 1.5 mg/dl (0.6-1.3); ISTAT IONIZED CALCIUM 1.13 mmol/l (1.12-1.32); ISTAT POTASSIUM 5.9 mEq/L (3.3-5.0)
--- NOTE | 2017-10-17 18:19 | DIAGNOSTIC IMAGING REPORT ---
HEAD WITHOUT CONTRAST (CT) CLINICAL HISTORY: 86 years-old Male with trauma, anticoagulated. Acute head injury TECHNIQUE: Multiple axial CT images of the head were obtained without contrast. A dose lowering technique was utilized adhering to the principles of ALARA. COMPARISON: CT head 09/20/2017. FINDINGS: No acute intracranial hemorrhage, midline shift, intracranial mass, hydrocephalus, territorial ischemia or abnormal extra-axial collection. Moderate atrophy. Moderate degree of ill-defined low-attenuation within the white matter of the cerebral hemispheres bilaterally suggests chronic microvascular ischemic changes. Senescent calcifications involve the lentiform nuclei bilaterally. The study is mildly motion degraded. Reversal vascular calcifications are seen at the level the skull base. The calvarium is intact. Mild mucoperiosteal thickening of the maxillary and ethmoid sinuses. Soft tissues are unremarkable. Note is made of disconjugate gaze. Thinning of the optic lenses bilaterally suggests prior cataract repair. IMPRESSION: No acute intracranial abnormality. The above report was generated using voice recognition software. It may contain grammatical, syntax or spelling errors. Electronically signed by: Papa Gates M.D. 10/17/2017 6:16 PM Dictated Date/Time: 10/17/2017 6:12 PM
--- NOTE | 2017-10-17 18:26 | DIAGNOSTIC IMAGING REPORT ---
CERVICAL SPINE W/O CLINICAL HISTORY: 86 years-old Male with trauma, pain. Acute posttraumatic neck pain. Acute fall. COMPARISON: The cervical spine 12/21/2007, CT thoracic spine of same day TECHNIQUE: Multiple axial CT images of the cervical spine were obtained without contrast. A dose lowering technique was utilized adhering to the principles of ALARA. FINDINGS: There is a large partially calcified pannus posterior to the odontoid process measuring up to 8 mm in AP dimension, progressed from comparison study. Additionally, there are new erosions of the odontoid process. Chondrocalcinosis of the disc spaces identified. Calcifications of the anterior and posterior longitudinal ligament are also noted. Cystic changes of the vertebral bodies are also noted, largest of which measures 1.5 cm within the C3 vertebral body. Erosive changes are noted involving the endplates and facets, notably the left-sided facets at C3-C4. 3 mm anterolisthesis C3 on C4 likely related to associated facet disease. No definite acute fracture or subluxation. Erosive changes of the C1 occipital articulation are also noted. No acute fracture identified. Large posterior disc osteophyte complex relation are seen at several levels. Evaluation of the central canal and neuroforamen is better conducted by MRI which has greater sensitivity for evaluating the structures. There is multilevel central canal and foraminal narrowing noted. There is incomplete bony fusion involving the posterior arch C1. Lung apices are clear without pneumothorax. Soft tissues are unremarkable. Mastoid air cells and middle ear cavities are clear. Mild mucosal thickening of the maxillary sinuses, left greater than right. IMPRESSION: 1. No acute fracture of the cervical spine identified. 2. 3 mm anterolisthesis C3 on C4 is likely secondary to advanced facet disease at this level. 3. 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 The above report was generated using voice recognition software. It may contain grammatical, syntax or spelling errors. Electronically signed by: Papa Gates M.D. 10/17/2017 6:25 PM Dictated Date/Time: 10/17/2017 6:16 PM
--- NOTE | 2017-10-17 18:28 | DIAGNOSTIC IMAGING REPORT ---
THORACIC SPINE WITHOUT CT DOSE: HISTORY: Pain. Trauma. CT ANGIOGRAM OF THE CHEST CLINICAL HISTORY: trauma, pain COMPARISON STUDY: Chest x-ray dated 09/20/2017 TECHNIQUE: Following the IV administration of 119 mL of Optiray-320, CT angiogram of the thorax was performed from the thoracic inlet to the lung bases utilizing the pulmonary embolus protocol. Images are reviewed in the axial, sagittal, and coronal planes. IV contrast was administered without complication. MIP imaging was performed. A dose lowering technique was utilized adhering to the principles of ALARA. CT DOSE: FINDINGS: No pathologically enlarged axillary mediastinal or hilar lymph nodes were visualized. There is mild ectasia of the ascending thoracic aorta which measures 4 cm There is streak artifact from bilateral shoulder arthroplasties. There are no filling defects to indicate acute pulmonary embolism. No pleural effusions are visualized. There is elevation left hemidiaphragm There are left lower lobe atelectatic changes. There are no areas of pulmonary consolidation suspicious for pneumonia. Evaluation the lung parenchyma is limited due to respiratory motion artifact. There are few scattered granulomatous calcifications present. IMPRESSION: 1. No evidence of acute pulmonary embolism 2. Moderate elevation left hemidiaphragm 3. Left basilar atelectasis. No findings concerning for pneumonia. Electronically signed by: Hector Mcgowan M.D. 10/17/2017 6:27 PM Dictated Date/Time: 10/17/2017 6:24 PM trauma, pain TECHNIQUE: Multiaxial CT images of the thoracic spine were performed and reformatted in the sagittal and coronal plane without the use of contrast. A dose lowering technique was utilized adhering to the principles of ALARA. COMPARISON: CT chest 10/17/2017 FINDINGS: Several slight compression deformity superior endplate of the mid thoracic region. These appear unchanged from the prior study and is considered pre-existing and/or old. No new compression deformity is identified. No significant subluxation. Degenerative disc change throughout. IMPRESSION: 1. No acute bony abnormality. 2. Several mild compression deformities of the mid thoracic region considered chronic. 3. Moderate degenerative disc change throughout. The above report was generated using voice recognition software. It may contain grammatical, syntax or spelling errors.
--- NOTE | 2017-10-17 18:30 | DIAGNOSTIC IMAGING REPORT ---
LUMBAR SPINE WITHOUT CT DOSE: 4900.42 mGy.cm HISTORY: Trauma. Pain. trauma, pain TECHNIQUE: Multiaxial CT images of the lumbar spine were performed and reformatted in the sagittal and coronal plane without the use of contrast. A dose lowering technique was utilized adhering to the principles of ALARA. COMPARISON: None. FINDINGS: Considerable degenerative disc change throughout the entire lumbar region. Vacuum discs throughout. Moderate reactive anterior and posterior osteophytic change. Posterior elements are intact throughout. Moderate degenerative change of the lateral facets. IMPRESSION: Considerable degenerative disc change. No acute bony abnormality. The above report was generated using voice recognition software. It may contain grammatical, syntax or spelling errors. Electronically signed by: Hector Mcgowan M.D. 10/17/2017 6:29 PM Dictated Date/Time: 10/17/2017 6:27 PM
--- NOTE | 2017-10-17 18:40 | DIAGNOSTIC IMAGING REPORT ---
CHEST CT WITH CONTRAST HISTORY: Acute chest, abdomen and pelvis trauma trauma, pain TECHNIQUE: Multiaxial CT images of the chest, abdomen and pelvis were performed following the intravenous administration of contrast. A dose lowering technique was utilized adhering to the principles of ALARA. COMPARISON: CT lumbar and thoracic spine CT of same day, CTA chest 09/20/2017. FINDINGS: CT CHEST: Streak artifact from bilateral shoulder arthroplasties limits evaluation of the upper thorax. No dominant thyroid nodule or pathologic adenopathy identified. Cardiomegaly with moderate enlargement of the right atrium and right ventricle. Coronary arterial calcifications are noted. No pericardial effusion. Thoracic aorta is normal in both course and caliber. The imaged proximal great vessels appear patent. The opacified pulmonary arterial tree is also unremarkable. There is no pneumothorax or pleural effusion. Chronic left hemidiaphragmatic elevation with left basilar atelectasis/scarring. Pleural calcifications are noted on the left. Scattered calcified granulomas are also noted. Linear subsegmental scarring/atelectasis of the basal right lower lobe. 5 mm area of fissural lymph node is seen on the right, image 165 of series 12. Central airways appear patent. Soft tissues of the chest are unremarkable. Mild bilateral symmetric gynecomastia. The bones appear mildly demineralized. Focally peripherally sclerotic lucent lesion measuring 1.4 cm involves the right aspect of the sternum on image 65, unchanged and indeterminate. This lesion demonstrates nonaggressive features. No acute rib fracture identified. Multilevel degenerative changes about the thoracic spine without acute fracture or subluxation identified. CT ABDOMEN/PELVIS: There is no pneumatosis or pneumoperitoneum. Study is mildly motion degraded. Artifact from right hip arthroplasty limits evaluation of the pelvis. 8 mm low attenuating lesion of the caudate lobe of the liver suggests hepatic cyst. Additional subcentimeter low attenuating lesions of the right hepatic lobe are noted measuring up to 5 mm which are indeterminate and may reflect additional hepatic cysts. There is mild marginal nodularity about the liver without ascites. No intrahepatic biliary ductal dilation. Large gallstone is seen within the gallbladder neck without CT evidence of acute cholecystitis. Spleen is unremarkable. Moderate generalized pancreatic atrophy. Adrenal glands are unremarkable. Mild parenchymal thinning of the kidneys bilaterally. 2.1 cm low attenuating lesion of the superior pole right kidney suggests renal cyst. Renal vascular calcifications are present bilaterally. Mild prostamegaly. Mild bladder wall thickening suggests sequela of chronic bladder outlet obstruction. Moderate calcifications of the aorta without aneurysm. No bulky adenopathy. No bowel obstruction or focal bowel wall thickening. Moderate stool volume of the rectosigmoid colon. Trace free fluid of the dependent pelvis of unknown etiology. Diastases recti with moderate atrophy of the bilateral pelvic musculature. Bones appear intact. Severe facet arthrosis of the lumbar spine. Severe multilevel intervertebral disc space narrowing, endplate spurring and facet arthrosis causing varying degrees of central canal and foraminal narrowing. Severe osteoarthritis about the left hip. No sacral insufficiency fracture. IMPRESSION: 1. No acute intrathoracic, intra-abdominal or intrapelvic abnormality identified. 2. No evidence of acute solid organ injury or fracture. 3. Chronic left hemidiaphragmatic elevation with left basilar scarring. 4. Prior granulomatous disease with calcified pleural plaques again noted within the left hemithorax. 5. Cholelithiasis without CT evidence of acute cholecystitis. 6. Additional findings as above. Electronically signed by: Papa Gates M.D. 10/17/2017 6:39 PM Dictated Date/Time: 10/17/2017 6:25 PM
[2017-10-17] MEDS ORDERED: FUROSEMIDE 40 MG/4 ML VIAL IV STA (19:18)
[2017-10-17] MEDS ORDERED: LIDO/EPINEPHRINE/SOD BICARB 20 ML VIAL ONE (19:46)
[2017-10-17] MEDS ORDERED: LIDOCAINE/EPINEPHRINE 1% 20 ML VIAL ONE (19:46)
[2017-10-17] MEDS ORDERED: ACETAMINOPHEN 325 MG TAB PO STA ×2 (21:05→23:37)
[2017-10-17] MEDS ORDERED: CEFTRIAXONE SOD INJ 1 GM ADDVIAL IV STA (21:20)
[2017-10-17] MEDS ORDERED: SODIUM CHLORIDE 0.9% 250ML 250 ML IV STA (21:24)
--- NOTE | 2017-10-17 23:22 | History and Physical ---
History & Physical Date & Time of Service: October 17, 2017 at 23:22 Chief Complaint: Syncope, Fall, Facial Lac. Primary Care Physician: Cayetano Conway M.D. History of Present Illness Source: patient, family, hospital records 86 yo M with Afib on Coumadin, HTN, Arthritis, presenting with history of fall. Patient was sitting in wheeled office chair afternoon of arrival and fell face forwar. Patient is poor historian and has minimal recollection of injury. Around 3: 15 pm this patient's family reports he fell face forwards on to the floor from a wheeled office chair. Patient lost conciousness for 5-6 minutes. Patient's family reports he has had progressive ambulatory dysfunction over the last 2 months requiring wheelchair. Patient's family also reprots difficulty urianting for the last 10 days despite adequate fluid intake, no hematuria at home. No history of falls in the past per family. 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 Past Medical/Surgical History Medical Problems: (1) Epistaxis (2) Epistaxis (3) H/O blood clots (4) HTN (hypertension) (5) Hypoxia (6) Right sided weakness (7) SOB (shortness of breath) Family History Hypertension Social History Smoking Status: Never Smoker Smokeless Tobacco Use: No Alcohol Use: none Marital Status: Occupational Status: retired Immunizations History of Influenza Vaccine: Unknown History of Tetanus Vaccine?: Unknown History of Pneumococcal: Unknown History of Hepatitis B Vaccine: Unknown Allergies Coded Allergies: No Known Allergies (Verified , 09/20/17) Uncoded Allergies: GENERIC MEDICATIONS (Allergy, Severe, RASH, 12/21/07) Home Medications Scheduled Cyanocobalamin (Vitamin B-12), 1,000 MCG PO DAILY Dorzolamide Hcl (Trusopt Oph), 1 DROP OPB BID Furosemide (Lasix), 80 MG PO DAILY Metoprolol Succ (Toprol Xl) (Toprol-Xl), 50 MG PO DAILY Multivitamin (Multivitamin), 1 TAB PO DAILY Mupirocin (Bactroban 2% Oint), 1 APPLN TOP BID Phenytoin Sodium (Dilantin), 200 MG PO QAM Phenytoin Sodium (Dilantin), 100 MG PO QPM Potassium Ext Rel (Klor-Con), 40 MEQ PO BID Warfarin Sod (Coumadin), 1 MG PO UD Scheduled PRN Acetaminophen (Tylenol Arthritis Ext Rel), 650 MG PO Q8H PRN for Pain Review of Systems Constitutional: + weakness, No fever, No chills Respiratory: No cough, No sputum, No shortness of breath Cardiovascular: + edema (shirin LE edema), No chest pain, No palpitations Abdomen: No pain, No nausea, No vomiting Musculoskeletal: + joint pain (arthritis), No calf pain Genitourinary - Male: + hematuria (s/p douglas insertion), No dysuria, No urinary frequency, No urinary urgency Neurologic: + weakness, No numbness/tingling Integumentary: No rash, No itch Physical Exam Vital Signs Date Time Temp Pulse Resp B/P (MAP) Pulse Ox O2 Delivery O2 Flow Rate FiO2 10/17/17 23:17 76 24 95/59 97 Nasal Cannula 2.0 10/17/17 22:06 73 20 100/68 96 Nasal Cannula 2.0 10/17/17 21:03 88 19 96/78 94 Nasal Cannula 2.0 10/17/17 20:19 113 10/17/17 19:35 86 20 117/67 95 Nasal Cannula 2.0 10/17/17 18:32 74 26 117/67 97 Nasal Cannula 2.5 10/17/17 16:53 74 24 113/65 97 Nasal Cannula 2.5 10/17/17 16:41 96 Nasal Cannula 2.5 10/17/17 16:38 36.3 78 26 134/81 95 Nasal Cannula 2.5 10/17/17 16:27 22 96 GENERAL: alert, well appearing, well nourished, no distress, non-toxic HEAD: 2cm laceration to the medial aspect of the left supraorbital ridge s/p suturing EYE EXAM: normal conjunctiva, PERRL and EOM's grossly intact OROPHARYNX: no exudate, no erythema, lips, buccal mucosa, and tongue normal and mucous membranes are moist NECK: supple, no adenopathy, non-tender LUNGS: Clear to auscultation. Normal chest wall mechanics HEART: no murmurs, S1 normal and S2 normal ABDOMEN: abdomen soft, non-tender, normo-active bowel sounds, no masses, no rebound or guarding. BACK: Back is symmetrical on inspection and there is no deformity SKIN: no rashes and no bruising UPPER EXTREMITIES: upper extremities are grossly normal. LOWER EXTREMITIES: 2+ pitting edema shirin Lower extremities, RLE erythema NEURO EXAM: AOx3 , cranial nerves II-XII intact, normal speech, L>R weakness ( non-acute) Diagnostics Laboratory Results Results Past 24 Hours Test 10/17/17 16:55 10/17/17 17:53 10/17/17 20:40 Range/Units White Blood Count 9.65 4.8-10.8 K/uL Red Blood Count 4.17 4.7-6.1 M/uL Hemoglobin 12.9 14.0-18.0 g/dL Hematocrit 38.6 42-52 % Mean Corpuscular Volume 92.6 80-100 fL Mean Corpuscular Hemoglobin 30.9 25-34 pg Mean Corpuscular Hemoglobin Concent 33.4 32-36 g/dl Platelet Count 185 130-400 K/uL Mean Platelet Volume 10.4 7.4-10.4 fL Neutrophils (%) (Auto) 64.5 % Lymphocytes (%) (Auto) 25.2 % Monocytes (%) (Auto) 7.6 % Eosinophils (%) (Auto) 2.3 % Basophils (%) (Auto) 0.1 % Neutrophils # (Auto) 6.23 1.4-6.5 K/uL Lymphocytes # (Auto) 2.43 1.2-3.4 K/uL Monocytes # (Auto) 0.73 0.11-0.59 K/uL Eosinophils # (Auto) 0.22 0-0.5 K/uL Basophils # (Auto) 0.01 0-0.2 K/uL RDW Standard Deviation 52.4 36.4-46.3 fL RDW Coefficient of Variation 15.4 11.5-14.5 % Immature Granulocyte % (Auto) 0.3 % Immature Granulocyte # (Auto) 0.03 0.00-0.02 K/uL Prothrombin Time 19.0 9.0-12.0 SECONDS Prothromb Time International Ratio 1.8 0.9-1.1 Sodium Level 136 136-145 mmol/L Potassium Level 5.9 3.5-5.1 mmol/L Chloride Level 109 98-107 mmol/L Carbon Dioxide Level 23 21-32 mmol/L Anion Gap 4.0 15.0 16-25 mmol/L Blood Urea Nitrogen 73 7-18 mg/dl Creatinine 1.45 0.60-1.40 mg/dl Est Creatinine Clear Calc Drug Dose 42.8 ml/min Estimated GFR () 49.8 Estimated GFR (Non- 43.0 BUN/Creatinine Ratio 50.5 10-20 Random Glucose 94 70-99 mg/dl Calcium Level 8.0 8.5-10.1 mg/dl Magnesium Level 2.4 1.8-2.4 mg/dl Total Bilirubin 0.2 0.2-1 mg/dl Aspartate Amino Transf (AST/SGOT) 32 15-37 U/L Alanine Aminotransferase (ALT/SGPT) 47 12-78 U/L Alkaline Phosphatase 202 45-117 U/L Troponin I < 0.015 0-0.045 ng/ml Pro-B-Type Natriuretic Peptide 1212 0-1800 pg/ml Total Protein 7.9 6.4-8.2 gm/dl Albumin 3.1 3.4-5.0 gm/dl Globulin 4.8 2.5-4.0 gm/dl Albumin/Globulin Ratio 0.6 0.9-2 Bedside Hemoglobin 13.6 14.0-18.0 g/dl Bedside Hematocrit 40 42-52 % Bedside Sodium 139 135-144 mEq/L Bedside Potassium 5.9 3.3-5.0 mEq/L Bedside Chloride 107 101-112 mEq/L Bedside Total CO2 23 24-31 mEq/l Bedside Blood Urea Nitrogen 68 7-18 mg/dl Bedside Creatinine 1.5 0.6-1.3 mg/dl Bedside Glucose (other) 94 70-99 mg/dl Bedside Ionized Calcium (Roxanne) 1.13 1.12-1.32 mmol/l Urine Color YELLOW Urine Appearance CLOUDY CLEAR Urine pH 5.0 4.5-7.5 Urine Specific [place] 1.020 1.000-1.030 Urine Protein NEG NEG Urine Glucose (UA) NEG NEG Urine Ketones NEG NEG Urine Occult Blood 1+ NEG Urine Nitrite NEG NEG Urine Bilirubin NEG NEG Urine Urobilinogen NEG NEG Urine Leukocyte Esterase LARGE NEG Urine WBC (Auto) >30 0-5 /hpf Urine RBC (Auto) 0-4 0-4 /hpf Urine Hyaline Casts (Auto) 5-10 0-5 /lpf Urine Epithelial Cells (Auto) 20-30 0-5 /lpf Urine Bacteria (Auto) NEG NEG Urine Pathogenic Casts 0 /lpf Diagnostic Radiology THORACIC SPINE WITHOUT CT DOSE: HISTORY: Pain. Trauma. CT ANGIOGRAM OF THE CHEST CLINICAL HISTORY: trauma, pain COMPARISON STUDY: Chest x-ray dated 09/20/2017 TECHNIQUE: Following the IV administration of 119 mL of [id number]-320, CT angiogram of the thorax was performed from the thoracic inlet to the lung bases utilizing the pulmonary embolus protocol. Images are reviewed in the axial, sagittal, and coronal planes. IV contrast was administered without complication. MIP imaging was performed. A dose lowering technique was utilized adhering to the principles of ALARA. CT DOSE: FINDINGS: No pathologically enlarged axillary mediastinal or hilar lymph nodes were visualized. There is mild ectasia of the ascending thoracic aorta which measures 4 cm There is streak artifact from bilateral shoulder arthroplasties. There are no filling defects to indicate acute pulmonary embolism. No pleural effusions are visualized. There is elevation left hemidiaphragm There are left lower lobe atelectatic changes. There are no areas of pulmonary consolidation suspicious for pneumonia. Evaluation the lung parenchyma is limited due to respiratory motion artifact. There are few scattered granulomatous calcifications present. IMPRESSION: 1. No evidence of acute pulmonary embolism 2. Moderate elevation left hemidiaphragm 3. Left basilar atelectasis. No findings concerning for pneumonia. Electronically signed by: Hector Mcgowan M.D. 10/17/2017 6:27 PM Dictated Date/Time: 10/17/2017 6:24 PM trauma, pain TECHNIQUE: Multiaxial CT images of the thoracic spine were performed and reformatted in the sagittal and coronal plane without the use of contrast. A dose lowering technique was utilized adhering to the principles of ALARA. COMPARISON: CT chest 10/17/2017 FINDINGS: Several slight compression deformity superior endplate of the mid thoracic region. These appear unchanged from the prior study and is considered pre-existing and/or old. No new compression deformity is identified. No significant subluxation. Degenerative disc change throughout. IMPRESSION: 1. No acute bony abnormality. 2. Several mild compression deformities of the mid thoracic region considered chronic. 3. Moderate degenerative disc change throughout. The above report was generated using voice recognition software. It may contain grammatical, syntax or spelling errors. LUMBAR SPINE WITHOUT CT DOSE: 4900.42 mGy.cm HISTORY: Trauma. Pain. trauma, pain TECHNIQUE: Multiaxial CT images of the lumbar spine were performed and reformatted in the sagittal and coronal plane without the use of contrast. A dose lowering technique was utilized adhering to the principles of ALARA. COMPARISON: None. FINDINGS: Considerable degenerative disc change throughout the entire lumbar region. Vacuum discs throughout. Moderate reactive anterior and posterior osteophytic change. Posterior elements are intact throughout. Moderate degenerative change of the lateral facets. IMPRESSION: Considerable degenerative disc change. No acute bony abnormality. The above report was generated using voice recognition software. It may contain grammatical, syntax or spelling errors. Electronically signed by: Hector Mcgowan M.D. 10/17/2017 6:29 PM Dictated Date/Time: 10/17/2017 6:27 PM HEAD WITHOUT CONTRAST (CT) CLINICAL HISTORY: 86 years-old Male with trauma, anticoagulated. Acute head injury TECHNIQUE: Multiple axial CT images of the head were obtained without contrast. A dose lowering technique was utilized adhering to the principles of ALARA. COMPARISON: CT head 09/20/2017. FINDINGS: No acute intracranial hemorrhage, midline shift, intracranial mass, hydrocephalus, territorial ischemia or abnormal extra-axial collection. Moderate atrophy. Moderate degree of ill-defined low-attenuation within the white matter of the cerebral hemispheres bilaterally suggests chronic microvascular ischemic changes. Senescent calcifications involve the lentiform nuclei bilaterally. The study is mildly motion degraded. Reversal vascular calcifications are seen at the level the skull base. The calvarium is intact. Mild mucoperiosteal thickening of the maxillary and ethmoid sinuses. Soft tissues are unremarkable. Note is made of disconjugate gaze. Thinning of the optic lenses bilaterally suggests prior cataract repair. IMPRESSION: No acute intracranial abnormality. The above report was generated using voice recognition software. It may contain grammatical, syntax or spelling errors. Electronically signed by: Papa Gates M.D. 10/17/2017 6:16 PM Dictated Date/Time: 10/17/2017 6:[address] WITH CONTRAST HISTORY: Acute chest, abdomen and pelvis trauma trauma, pain TECHNIQUE: Multiaxial CT images of the chest, abdomen and pelvis were performed following the intravenous administration of contrast. A dose lowering technique was utilized adhering to the principles of ALARA. COMPARISON: CT lumbar and thoracic spine CT of same day, CTA chest 09/20/2017. FINDINGS: CT CHEST: Streak artifact from bilateral shoulder arthroplasties limits evaluation of the upper thorax. No dominant thyroid nodule or pathologic adenopathy identified. Cardiomegaly with moderate enlargement of the right atrium and right ventricle. Coronary arterial calcifications are noted. No pericardial effusion. Thoracic aorta is normal in both course and caliber. The imaged proximal great vessels appear patent. The opacified pulmonary arterial tree is also unremarkable. There is no pneumothorax or pleural effusion. Chronic left hemidiaphragmatic elevation with left basilar atelectasis/scarring. Pleural calcifications are noted on the left. Scattered calcified granulomas are also noted. Linear subsegmental scarring/atelectasis of the basal right lower lobe. 5 mm area of fissural lymph node is seen on the right, image 165 of series 12. Central airways appear patent. Soft tissues of the chest are unremarkable. Mild bilateral symmetric gynecomastia. The bones appear mildly demineralized. Focally peripherally sclerotic lucent lesion measuring 1.4 cm involves the right aspect of the sternum on image 65, unchanged and indeterminate. This lesion demonstrates nonaggressive features. No acute rib fracture identified. Multilevel degenerative changes about the thoracic spine without acute fracture or subluxation identified. CT ABDOMEN/PELVIS: There is no pneumatosis or pneumoperitoneum. Study is mildly motion degraded. Artifact from right hip arthroplasty limits evaluation of the pelvis. 8 mm low attenuating lesion of the caudate lobe of the liver suggests hepatic cyst. Additional subcentimeter low attenuating lesions of the right hepatic lobe are noted measuring up to 5 mm which are indeterminate and may reflect additional hepatic cysts. There is mild marginal nodularity about the liver without ascites. No intrahepatic biliary ductal dilation. Large gallstone is seen within the gallbladder neck without CT evidence of acute cholecystitis. Spleen is unremarkable. Moderate generalized pancreatic atrophy. Adrenal glands are unremarkable. Mild parenchymal thinning of the kidneys bilaterally. 2.1 cm low attenuating lesion of the superior pole right kidney suggests renal cyst. Renal vascular calcifications are present bilaterally. Mild prostamegaly. Mild bladder wall thickening suggests sequela of chronic bladder outlet obstruction. Moderate calcifications of the aorta without aneurysm. No bulky adenopathy. No bowel obstruction or focal bowel wall thickening. Moderate stool volume of the rectosigmoid colon. Trace free fluid of the dependent pelvis of unknown etiology. Diastases recti with moderate atrophy of the bilateral pelvic musculature. Bones appear intact. Severe facet arthrosis of the lumbar spine. Severe multilevel intervertebral disc space narrowing, endplate spurring and facet arthrosis causing varying degrees of central canal and foraminal narrowing. Severe osteoarthritis about the left hip. No sacral insufficiency fracture. IMPRESSION: 1. No acute intrathoracic, intra-abdominal or intrapelvic abnormality identified. 2. No evidence of acute solid organ injury or fracture. 3. Chronic left hemidiaphragmatic elevation with left basilar scarring. 4. Prior granulomatous disease with calcified pleural plaques again noted within the left hemithorax. 5. Cholelithiasis without CT evidence of acute cholecystitis. 6. Additional findings as above. Electronically signed by: Papa Gates M.D. 10/17/2017 6:39 PM Dictated Date/Time: 10/17/2017 6:25 PM CERVICAL SPINE W/O CLINICAL HISTORY: 86 years-old Male with trauma, pain. Acute posttraumatic neck pain. Acute fall. COMPARISON: The cervical spine 12/21/2007, CT thoracic spine of same day TECHNIQUE: Multiple axial CT images of the cervical spine were obtained without contrast. A dose lowering technique was utilized adhering to the principles of ALARA. FINDINGS: There is a large partially calcified pannus posterior to the odontoid process measuring up to 8 mm in AP dimension, progressed from comparison study. Additionally, there are new erosions of the odontoid process. Chondrocalcinosis of the disc spaces identified. Calcifications of the anterior and posterior longitudinal ligament are also noted. Cystic changes of the vertebral bodies are also noted, largest of which measures 1.5 cm within the C3 vertebral body. Erosive changes are noted involving the endplates and facets, notably the left-sided facets at C3-C4. 3 mm anterolisthesis C3 on C4 likely related to associated facet disease. No definite acute fracture or subluxation. Erosive changes of the C1 occipital articulation are also noted. No acute fracture identified. Large posterior disc osteophyte complex relation are seen at several levels. Evaluation of the central canal and neuroforamen is better conducted by MRI which has greater sensitivity for evaluating the structures. There is multilevel central canal and foraminal narrowing noted. There is incomplete bony fusion involving the posterior arch C1. Lung apices are clear without pneumothorax. Soft tissues are unremarkable. Mastoid air cells and middle ear cavities are clear. Mild mucosal thickening of the maxillary sinuses, left greater than right. IMPRESSION: 1. No acute fracture of the cervical spine identified. 2. 3 mm anterolisthesis C3 on C4 is likely secondary to advanced facet disease at this level. 3. 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 The above report was generated using voice recognition software. It may contain grammatical, syntax or spelling errors. Electronically signed by: Papa Gates M.D. 10/17/2017 6:25 PM Dictated Date/Time: 10/17/2017 6:[address] WITH CONTRAST HISTORY: Acute chest, abdomen and pelvis trauma trauma, pain TECHNIQUE: Multiaxial CT images of the chest, abdomen and pelvis were performed following the intravenous administration of contrast. A dose lowering technique was utilized adhering to the principles of ALARA. COMPARISON: CT lumbar and thoracic spine CT of same day, CTA chest 09/20/2017. FINDINGS: CT CHEST: Streak artifact from bilateral shoulder arthroplasties limits evaluation of the upper thorax. No dominant thyroid nodule or pathologic adenopathy identified. Cardiomegaly with moderate enlargement of the right atrium and right ventricle. Coronary arterial calcifications are noted. No pericardial effusion. Thoracic aorta is normal in both course and caliber. The imaged proximal great vessels appear patent. The opacified pulmonary arterial tree is also unremarkable. There is no pneumothorax or pleural effusion. Chronic left hemidiaphragmatic elevation with left basilar atelectasis/scarring. Pleural calcifications are noted on the left. Scattered calcified granulomas are also noted. Linear subsegmental scarring/atelectasis of the basal right lower lobe. 5 mm area of fissural lymph node is seen on the right, image 165 of series 12. Central airways appear patent. Soft tissues of the chest are unremarkable. Mild bilateral symmetric gynecomastia. The bones appear mildly demineralized. Focally peripherally sclerotic lucent lesion measuring 1.4 cm involves the right aspect of the sternum on image 65, unchanged and indeterminate. This lesion demonstrates nonaggressive features. No acute rib fracture identified. Multilevel degenerative changes about the thoracic spine without acute fracture or subluxation identified. CT ABDOMEN/PELVIS: There is no pneumatosis or pneumoperitoneum. Study is mildly motion degraded. Artifact from right hip arthroplasty limits evaluation of the pelvis. 8 mm low attenuating lesion of the caudate lobe of the liver suggests hepatic cyst. Additional subcentimeter low attenuating lesions of the right hepatic lobe are noted measuring up to 5 mm which are indeterminate and may reflect additional hepatic cysts. There is mild marginal nodularity about the liver without ascites. No intrahepatic biliary ductal dilation. Large gallstone is seen within the gallbladder neck without CT evidence of acute cholecystitis. Spleen is unremarkable. Moderate generalized pancreatic atrophy. Adrenal glands are unremarkable. Mild parenchymal thinning of the kidneys bilaterally. 2.1 cm low attenuating lesion of the superior pole right kidney suggests renal cyst. Renal vascular calcifications are present bilaterally. Mild prostamegaly. Mild bladder wall thickening suggests sequela of chronic bladder outlet obstruction. Moderate calcifications of the aorta without aneurysm. No bulky adenopathy. No bowel obstruction or focal bowel wall thickening. Moderate stool volume of the rectosigmoid colon. Trace free fluid of the dependent pelvis of unknown etiology. Diastases recti with moderate atrophy of the bilateral pelvic musculature. Bones appear intact. Severe facet arthrosis of the lumbar spine. Severe multilevel intervertebral disc space narrowing, endplate spurring and facet arthrosis causing varying degrees of central canal and foraminal narrowing. Severe osteoarthritis about the left hip. No sacral insufficiency fracture. IMPRESSION: 1. No acute intrathoracic, intra-abdominal or intrapelvic abnormality identified. 2. No evidence of acute solid organ injury or fracture. 3. Chronic left hemidiaphragmatic elevation with left basilar scarring. 4. Prior granulomatous disease with calcified pleural plaques again noted within the left hemithorax. 5. Cholelithiasis without CT evidence of acute cholecystitis. 6. Additional findings as above. Electronically signed by: Papa Gates M.D. 10/17/2017 6:39 PM Dictated Date/Time: 10/17/2017 6:25 PM EKG Atrial Fibrillation, rate 77, no acute ischemic changes Impression Assessment and Plan 86 yo M with Afib on Coumadin, HTN, Arthritis, presenting with history of fall. History of Fall - possibly mechanical, unclear if symptoms preceded Fall, patient has no recollection -LOC followed face forward fall from chair -CT Head , Thoracic, Lumbar, Chest, Abdomen/Pelvis performed with no acute fx. -CT Cspine showed C3-C4 adv facet disease, annulus fribrosis, facet joint long ligament calcifications consistent with CPPD HTN - BP controlled - c/w Metoprolol Afib - rate controlled - c/w Metoprolol - Held Coumadin for Fall/lacerations, hematuria developed in ED Hematuria -occurred in ED -likely traumatic douglas insertion -had been reported to have difficulty passing urine 10 days prior per family -possibly related to bladder outlet obstruction - continue to monitor RLE Cellulitis - RLE erythema - MRSA swab ordered, Blood cxs ordered - start on Vanc, Zosyn Abnormal UA - possible UTI vs prostatitis - difficult urinating prior to arrival could be consistent with bladder outlet obstruction montez ch as prostatitis - abx as above LE Edema -possibly venous stasis, r/o CHF - Echo ordered -c/w home lasix Seizure disorder - c/w phenytoin Ambulatory dysfunction - gradually declining ambulation, requiring wheel chair - generalized weakened and severe arthritis - evidence of CPPD on imaging DVT PPX SCD Code status: DNR PT/OT Attending addendum: I have physically seen this patient, have supervised the medical residents activities, and agree with the H&P unless as otherwise noted. Assessment and Plan: Status post fall-- Workup as above has been negative. Has significant CPPD arthropathy. Would likely benefit from PT OT assessment. Atrial fibrillation/hypertension-- Continue metoprolol with hold parameters. Hold warfarin at this point due to issues with falling and hematuria. Lower extremity cellulitis/chronic venous insufficiency-- Empiric antibiotic therapy with vancomycin and Zosyn to cover skin and urine. Lasix to be continued. Gross hematuria/bladder outlet obstruction-- Was not noted until Douglas insertion Start tamsulosin 0.4 mg at bedtime Advanced Directives Existing Advance Directive: Yes Existing Living Will: Yes Resuscitation Status VTE Prophylaxis Will order VTE Prophylaxis: Yes Reason for no VTE drug order: Contraindicated Note Total Time: Critical Care 30 - 74 minutes Resident Tracking Resident Involvement: Resident Care Provided Care Provided: Adult Hospital Medicine
[2017-10-17] MEDS ORDERED: ALUMINUM/MAGNESIUM/SIMETH (MAALOX MAX) 30 ML UDC PO PRN (23:30)
[2017-10-17] MEDS ORDERED: VANCOMYCIN CONSULT ACTIVE PRN (23:30)
[2017-10-17] MEDS ORDERED: MAGNESIUM HYDROXIDE SUSP 30 ML UDC PO PRN (23:30)
[2017-10-17] MEDS ORDERED: POLYETHYLENE (MIRALAX) 17 GM PACK PO PRN (23:30)
[2017-10-17] MEDS ORDERED: PIPERACILL/TAZOBAC CONSULT ACTIVE PRN (23:30)
[2017-10-17] MEDS ORDERED: ACETAMINOPHEN 325 MG TAB PO PRN (23:30)
[2017-10-17] MEDS ORDERED: ONDANSETRON INJ 2 MG/ML 2 ML VIAL IV PRN (23:30)
[2017-10-17] MEDS ORDERED: ACETAMINOPHEN 325 MG TAB ONE (23:39)
[2017-10-17] MEDS ORDERED: ALBUMIN HUMAN 25% 12.5 GM/50 ML VIAL IV STA (23:45)
[2017-10-18] VITALS (13 sets, daily range): BP systolic 88–123; BP diastolic 41–66; PULSE 77–91; TEMP 34.6–36.3; O2SAT 92–99; Ht 177.8 cm; Wt 111.7 kg
[2017-10-18] MEDS ORDERED: PIPERACILL/TAZOBAC IV 3.375 GM in DEXTROSE 5% 100ML 100 ML IV SCH ×2
[2017-10-18] MEDS ORDERED: PIPERACILL/TAZOBAC IV 3.375 GM in NSS 100 ML IV ONE (01:30)
[2017-10-18] MEDS ORDERED: VANCOMYCIN IV 2,250 MG in SODIUM CHLORIDE 0.9% 500ML 500 ML IV SCH (01:30)
[2017-10-18] MEDS ORDERED: NURSING VERBAL MED ORDER ONE ×2 (02:30→09:45)
[2017-10-18] MEDS ORDERED: PNEUMOCOCCAL POLYSACCHARIDES 25 MCG/0.5 ML VIAL/SYR IM. ONE (03:45)
[2017-10-18] MEDS ORDERED: PNEUMOCOCCAL ADMINISTRATION CHARGE ONE (03:45)
[2017-10-18] MEDS: PIPERACILL/TAZOBAC IV 3.375 GM in NSS 100ML IV SCH ×3 (05:55→21:43)
[2017-10-18 07:07] LABS: BASO % 0.1 %; BASO ABS # 0.01 K/uL (0-0.2); EOS % 1.1 %; HEMATOCRIT 35.5 % (42-52); HEMOGLOBIN 11.6 g/dL (14.0-18.0); IG# 0.02 K/uL (0.00-0.02); LYMPH % 20.3 %; LYMPH ABS # 1.83 K/uL (1.2-3.4); MEAN CELL VOLUME 93.7 fL (80-100); MEAN CORPUSCULAR HEMOGLOBIN 30.6 pg (25-34); MEAN CORPUSCULAR HGB CONC 32.7 g/dl (32-36); MONO % 9.5 %; MONO ABS # 0.86 K/uL (0.11-0.59); NEUT % 68.8 %; NEUT ABS # 6.21 K/uL (1.4-6.5); PLATELET COUNT 151 K/uL (130-400); RED CELL DISTRIBUTION WIDTH CV 15.4 % (11.5-14.5); RED CELL DISTRIBUTION WIDTH SD 52.7 fL (36.4-46.3); WHITE BLOOD COUNT 9.03 K/uL (4.8-10.8)
[2017-10-18 07:15] LABS: INR 1.5 (0.9-1.1)
[2017-10-18 07:36] LABS: CALCIUM 7.9 mg/dl (8.5-10.1); CREATININE 1.49 mg/dl (0.60-1.40); POTASSIUM 5.7 mmol/L (3.5-5.1)
[2017-10-18] MEDS: PHENYTOIN SODIUM ER 100 MG CAP PO SCH ×2 (08:15→21:40)
[2017-10-18] MEDS: METOPROLOL SUCC 50MG EXT REL TAB PO SCH (08:15)
[2017-10-18] MEDS ORDERED: FUROSEMIDE INJ 40 MG in SYRINGE 0 ML IV SCH (09:00)
[2017-10-18] MEDS ORDERED: VANCOMYCIN IV 1,000 MG in SODIUM CHLORIDE 0.9% 250ML 250 ML IV SCH (09:00)
[2017-10-18] MEDS ORDERED: POTASSIUM CHLORIDE 20 MEQ TABCR PO SCH (09:00)
--- NOTE | 2017-10-18 10:57 | Pharmacy Progress Note ---
Pharmacy Antibiotic Consult Date of Service: October 18, 2017. Pharmacy Dosing Scope Pharmacy is consulted to initiate VANC/ZOSYN IV dosing therapy, order appropriate labs and adjust drug dose/frequency. Subjective The patient is a 86 year old male admitted on October 17, 2017 at 23:55 ordered broad spectrum antibiotics for possible SSTI/Pulmonary/UTI indications. Objective Height (Feet): 5 Height (Inches): 10.00 Weight (Kilograms): 96.900 Lab Results (24hrs): Test 10/17/17 16:55 10/17/17 17:53 10/17/17 20:40 10/18/17 06:55 White Blood Count 9.65 K/uL (4.8-10.8) 9.03 K/uL (4.8-10.8) Red Blood Count 4.17 M/uL (4.7-6.1) 3.79 M/uL (4.7-6.1) Hemoglobin 12.9 g/dL (14.0-18.0) 11.6 g/dL (14.0-18.0) Hematocrit 38.6 % (42-52) 35.5 % (42-52) Mean Corpuscular Volume 92.6 fL (80-100) 93.7 fL (80-100) Mean Corpuscular Hemoglobin 30.9 pg (25-34) 30.6 pg (25-34) Mean Corpuscular Hemoglobin Concent 33.4 g/dl (32-36) 32.7 g/dl (32-36) Platelet Count 185 K/uL (130-400) 151 K/uL (130-400) Mean Platelet Volume 10.4 fL (7.4-10.4) 10.0 fL (7.4-10.4) Neutrophils (%) (Auto) 64.5 % 68.8 % Lymphocytes (%) (Auto) 25.2 % 20.3 % Monocytes (%) (Auto) 7.6 % 9.5 % Eosinophils (%) (Auto) 2.3 % 1.1 % Basophils (%) (Auto) 0.1 % 0.1 % Neutrophils # (Auto) 6.23 K/uL (1.4-6.5) 6.21 K/uL (1.4-6.5) Lymphocytes # (Auto) 2.43 K/uL (1.2-3.4) 1.83 K/uL (1.2-3.4) Monocytes # (Auto) 0.73 K/uL (0.11-0.59) 0.86 K/uL (0.11-0.59) Eosinophils # (Auto) 0.22 K/uL (0-0.5) 0.10 K/uL (0-0.5) Basophils # (Auto) 0.01 K/uL (0-0.2) 0.01 K/uL (0-0.2) RDW Standard Deviation 52.4 fL (36.4-46.3) 52.7 fL (36.4-46.3) RDW Coefficient of Variation 15.4 % (11.5-14.5) 15.4 % (11.5-14.5) Immature Granulocyte % (Auto) 0.3 % 0.2 % Immature Granulocyte # (Auto) 0.03 K/uL (0.00-0.02) 0.02 K/uL (0.00-0.02) Prothrombin Time 19.0 SECONDS (9.0-12.0) 15.9 SECONDS (9.0-12.0) Prothromb Time International Ratio 1.8 (0.9-1.1) 1.5 (0.9-1.1) Sodium Level 136 mmol/L (136-145) 137 mmol/L (136-145) Potassium Level 5.9 mmol/L (3.5-5.1) 5.7 mmol/L (3.5-5.1) Chloride Level 109 mmol/L (98-107) 109 mmol/L (98-107) Carbon Dioxide Level 23 mmol/L (21-32) 25 mmol/L (21-32) Blood Urea Nitrogen 73 mg/dl (7-18) 71 mg/dl (7-18) Creatinine 1.45 mg/dl (0.60-1.40) 1.49 mg/dl (0.60-1.40) Est Creatinine Clear Calc Drug Dose 42.8 ml/min 40.8 ml/min Estimated GFR () 49.8 48.2 Estimated GFR (Non- 43.0 41.6 BUN/Creatinine Ratio 50.5 (10-20) 47.6 (10-20) Random Glucose 94 mg/dl (70-99) 93 mg/dl (70-99) Calcium Level 8.0 mg/dl (8.5-10.1) 7.9 mg/dl (8.5-10.1) Magnesium Level 2.4 mg/dl (1.8-2.4) Total Bilirubin 0.2 mg/dl (0.2-1) Aspartate Amino Transf (AST/SGOT) 32 U/L (15-37) Alanine Aminotransferase (ALT/SGPT) 47 U/L (12-78) Alkaline Phosphatase 202 U/L (45-117) Troponin I < 0.015 ng/ml (0-0.045) Pro-B-Type Natriuretic Peptide 1212 pg/ml (0-1800) Total Protein 7.9 gm/dl (6.4-8.2) Albumin 3.1 gm/dl (3.4-5.0) Globulin 4.8 gm/dl (2.5-4.0) Albumin/Globulin Ratio 0.6 (0.9-2) Bedside Hemoglobin 13.6 g/dl (14.0-18.0) Bedside Hematocrit 40 % (42-52) Bedside Sodium 139 mEq/L (135-144) Bedside Potassium 5.9 mEq/L (3.3-5.0) Bedside Chloride 107 mEq/L (101-112) Bedside Total CO2 23 mEq/l (24-31) Anion Gap 15.0 mmol/L (16-25) 3.0 mmol/L (3-11) Bedside Blood Urea Nitrogen 68 mg/dl (7-18) Bedside Creatinine 1.5 mg/dl (0.6-1.3) Bedside Glucose (other) 94 mg/dl (70-99) Bedside Ionized Calcium (Roxanne) 1.13 mmol/l (1.12-1.32) Urine Color YELLOW Urine Appearance CLOUDY (CLEAR) Urine pH 5.0 (4.5-7.5) Urine Specific [place] 1.020 (1.000-1.030) Urine Protein NEG (NEG) Urine Glucose (UA) NEG (NEG) Urine Ketones NEG (NEG) Urine Occult Blood 1+ (NEG) Urine Nitrite NEG (NEG) Urine Bilirubin NEG (NEG) Urine Urobilinogen NEG (NEG) Urine Leukocyte Esterase LARGE (NEG) Urine WBC (Auto) >30 /hpf (0-5) Urine RBC (Auto) 0-4 /hpf (0-4) Urine Hyaline Casts (Auto) 5-10 /lpf (0-5) Urine Epithelial Cells (Auto) 20-30 /lpf (0-5) Urine Bacteria (Auto) NEG (NEG) Urine Pathogenic Casts /lpf (0) Micro Results: Item Value Date Time MRSA DNA Surveillance Screen - Final Complete 10/18/17 0500 Nasal Specimen Negative for MRSA by DNA Probe Blood Culture Received 10/18/17 0029 Blood Pending Blood Culture Received 10/18/17 0017 Blood Pending Assessment & Plan VANC-IV: * Estimated p'kinetics: Vd~0.7 L/kg, Ke~0.0384 hr-1, T1/2~18 hrs * Loading dose: VANC 2250mg (~23mg/kg) IV X 1 dose then, * Maintenance Dose: VANC 1500mg (~15mg/kg) IV every 24 hours * Goal trough level estimate: between 15 - 20 mcg/mL. * VANC trough @Css prior to 10/20/172129. ZOSYN-IV: Continue 3.375g IV CI every 8 hours for est GFR>20mL/min. Pharmacy will continue to follow and will adjust dose/frequency as necessary. Thank you
--- NOTE | 2017-10-18 12:39 | Family Medicine Progress Note ---
Progress Note Date of Service October 18, 2017. Subjective Pt evaluation today including: conversation w/ patient, physical exam, chart review, lab review Pain: neck, shoulder and L arm pain PO Intake: tolerating Voiding: no voiding problems This AM pt reported L arm, neck and shoulder pain. Reported both legs and feet feeling numb. Denied any back pain. Per family, pt was dozzing off on office rolling chair and feel while nursing staff attempting to change dressing on legs. Pt felt clammy after the incident and was unconscious for about 5-6 minutes. However remembers coming through ED doors. Also noted to be having difficulty urinating for the past 2-3 weeks ( felt like had to go but couldn't). Rectum does not feel full (no rock sensation) . Family notes increased sob (huffing and puffing more) and pt is not on O2 at home. Per nursing report heard coughing and urine cisco in color Constitutional: + fatigue, + problem reported (hypothermia), No fever Respiratory: + cough, + shortness of breath Cardiovascular: No chest pain Abdomen: No pain, No nausea, No vomiting Musculoskeletal: + problem reported (R arm, bilateral shoulder and neck pain ) Male : + slowing stream (difficulty urinating ), No dysuria Medications Current Inpatient Medications Medications (Trade) Dose Ordered Sig/Shani Route Start Time Stop Time Status Last Admin Dose Admin Ioversol (Optiray 320) 100 ml UD PRN IV 10/17/17 18:00 10/21/17 17:59 Al Hydrox/Mg Hydrox/Simethicone (Maalox Max Susp) 15 ml Q4H PRN PO 10/17/17 23:30 11/16/17 23:29 Magnesium Hydroxide (Milk Of Magnesia Susp) 30 ml Q6H PRN PO 10/17/17 23:30 11/16/17 23:29 Polyethylene (Miralax Powder Packet) 17 gm DAILY PRN PO 10/17/17 23:30 11/16/17 23:29 Ondansetron HCl (Zofran Inj) 4 mg Q6H PRN IV 10/17/17 23:30 11/16/17 23:29 Metoprolol Succinate (Toprol Xl Tab) 50 mg DAILY PO 10/18/17 09:00 11/17/17 08:59 10/18/17 08:15 50 MG Phenytoin Sodium (Dilantin Er Cap) 100 mg QPM PO 10/18/17 21:00 11/17/17 20:59 Phenytoin Sodium (Dilantin Er Cap) 200 mg QAM PO 10/18/17 09:00 11/17/17 08:59 10/18/17 08:15 200 MG Potassium Chloride (Klor-Con Tab) 40 meq BID PO 10/18/17 09:00 11/17/17 08:59 Future Hold Miscellaneous Information (Consult) 1 ea UD PRN N/A 10/17/17 23:30 11/16/17 23:29 Miscellaneous Information (Consult) 1 ea UD PRN N/A 10/17/17 23:30 11/16/17 23:29 Furosemide 40 mg/ Syringe 4 ml @ 4 mls/min DAILY IV 10/18/17 09:00 11/17/17 08:59 10/18/17 08:01 4 MLS/MIN Piperacillin Sod/ Tazobactam Sod 3.375 gm/Sodium Chloride 115 ml @ 28.75 mls/ hr Q8H IV 10/18/17 06:00 10/25/17 05:59 10/18/17 14:09 28.75 MLS/HR Vancomycin HCl 1500 mg/Sodium Chloride 530 ml @ 200 mls/hr Q24H IV 10/18/17 22:00 10/28/17 21:59 Acetaminophen (Tylenol Tab) 1,000 mg Q8H PO 10/18/17 22:00 11/17/17 21:59 Lidocaine (Lidoderm Patch 5%) 1 patch QAM TD 10/18/17 13:45 11/17/17 13:44 10/18/17 15:09 1 PATCH Miscellaneous (Remove Lidoderm Patch) 1 ea DAILY@21 N/A 10/18/17 21:00 11/17/17 20:59 Sodium Chloride ([place] Nasal Flippin) 1 sprays PRN PRN NA 10/18/17 17:00 11/17/17 16:59 Objective Vital Signs Date Time Temp Pulse Resp B/P (MAP) Pulse Ox O2 Delivery O2 Flow Rate FiO2 10/18/17 16:00 99 Oxymask 2.0 10/18/17 15:30 35.5 79 22 88/41 (57) 98 2.0 91/53 (66) 10/18/17 12:00 92 Nasal Cannula 2.0 Oxymask 10/18/17 11:46 35.1 82 18 91/54 (66) 92 2.0 10/18/17 08:00 92 Nasal Cannula 2.0 Oxymask 10/18/17 07:32 34.8 78 28 108/62 (77) 92 Oxymask 2.0 10/18/17 04:26 34.6 77 20 99/62 (74) 98 Oxymask 2.0 10/18/17 04:15 Oxymask 2.0 10/18/17 00:30 34.7 91 28 123/66 98 Mask 2.0 10/18/17 00:27 82 24 99/61 95 Nasal Cannula 2.0 10/18/17 00:10 70 24 87/51 95 Nasal Cannula 2.0 10/18/17 00:00 72 10/17/17 23:17 76 24 95/59 97 Nasal Cannula 2.0 10/17/17 22:06 73 20 100/68 96 Nasal Cannula 2.0 10/17/17 21:03 88 19 96/78 94 Nasal Cannula 2.0 10/17/17 20:19 113 10/17/17 19:35 86 20 117/67 95 Nasal Cannula 2.0 10/17/17 18:32 74 26 117/67 97 Nasal Cannula 2.5 Physical Exam General Appearance: + mild distress (working hard to breath), + obese Eyes: + pertinent finding (L eye bruised with sutured lac) Neck: supple, + pertinent finding (TTP) Respiratory/Chest: + decreased breath sounds, + pertinent finding (transmitted upper airway sounds with tachypnea and use of intercostal/abdominal muscles to breath) Cardiovascular: regular rate, rhythm, no murmur Abdomen: normal bowel sounds, non tender, soft Extremities: + swelling (3+ b/l LE edema), + pertinent finding (bilateral feet and legs with chronic venous stasis skin changes (erythema/scarring but no increased warmth or TTP) ) Neurologic/Psychiatric: alert Skin: + pertinent finding (L eye lac and bruise; R walton abrasion ) Laboratory Results 10/18/17 06:55 Red Blood Count 3.79, Mean Corpuscular Volume 93.7, Mean Corpuscular Hemoglobin 30.6, Mean Corpuscular Hemoglobin Concent 32.7, Mean Platelet Volume 10.0, Neutrophils (%) (Auto) 68.8, Lymphocytes (%) (Auto) 20.3, Monocytes (%) (Auto) 9.5, Eosinophils (%) (Auto) 1.1, Basophils (%) (Auto) 0.1, Neutrophils # (Auto) 6.21, Lymphocytes # (Auto) 1.83, Monocytes # (Auto) 0.86, Eosinophils # (Auto) 0.10, Basophils # (Auto) 0.01 10/18/17 06:55 Test 10/17/17 17:53 10/17/17 20:40 10/18/17 06:55 Bedside Hemoglobin 13.6 g/dl (14.0-18.0) Bedside Hematocrit 40 % (42-52) Bedside Sodium 139 mEq/L (135-144) Bedside Potassium 5.9 mEq/L (3.3-5.0) Bedside Chloride 107 mEq/L (101-112) Bedside Total CO2 23 mEq/l (24-31) Bedside Blood Urea Nitrogen 68 mg/dl (7-18) Bedside Creatinine 1.5 mg/dl (0.6-1.3) Bedside Glucose (other) 94 mg/dl (70-99) Bedside Ionized Calcium (Roxanne) 1.13 mmol/l (1.12-1.32) Urine Color YELLOW Urine Appearance CLOUDY (CLEAR) Urine pH 5.0 (4.5-7.5) Urine Specific [place] 1.020 (1.000-1.030) Urine Protein NEG (NEG) Urine Glucose (UA) NEG (NEG) Urine Ketones NEG (NEG) Urine Occult Blood 1+ (NEG) Urine Nitrite NEG (NEG) Urine Bilirubin NEG (NEG) Urine Urobilinogen NEG (NEG) Urine Leukocyte Esterase LARGE (NEG) Urine WBC (Auto) >30 /hpf (0-5) Urine RBC (Auto) 0-4 /hpf (0-4) Urine Hyaline Casts (Auto) 5-10 /lpf (0-5) Urine Epithelial Cells (Auto) 20-30 /lpf (0-5) Urine Bacteria (Auto) NEG (NEG) Urine Pathogenic Casts /lpf (0) White Blood Count 9.03 K/uL (4.8-10.8) Red Blood Count 3.79 M/uL (4.7-6.1) Hemoglobin 11.6 g/dL (14.0-18.0) Hematocrit 35.5 % (42-52) Mean Corpuscular Volume 93.7 fL (80-100) Mean Corpuscular Hemoglobin 30.6 pg (25-34) Mean Corpuscular Hemoglobin Concent 32.7 g/dl (32-36) Platelet Count 151 K/uL (130-400) Mean Platelet Volume 10.0 fL (7.4-10.4) Neutrophils (%) (Auto) 68.8 % Lymphocytes (%) (Auto) 20.3 % Monocytes (%) (Auto) 9.5 % Eosinophils (%) (Auto) 1.1 % Basophils (%) (Auto) 0.1 % Neutrophils # (Auto) 6.21 K/uL (1.4-6.5) Lymphocytes # (Auto) 1.83 K/uL (1.2-3.4) Monocytes # (Auto) 0.86 K/uL (0.11-0.59) Eosinophils # (Auto) 0.10 K/uL (0-0.5) Basophils # (Auto) 0.01 K/uL (0-0.2) RDW Standard Deviation 52.7 fL (36.4-46.3) RDW Coefficient of Variation 15.4 % (11.5-14.5) Immature Granulocyte % (Auto) 0.2 % Immature Granulocyte # (Auto) 0.02 K/uL (0.00-0.02) Prothrombin Time 15.9 SECONDS (9.0-12.0) Prothromb Time International Ratio 1.5 (0.9-1.1) Anion Gap 3.0 mmol/L (3-11) Est Creatinine Clear Calc Drug Dose 40.8 ml/min Estimated GFR () 48.2 Estimated GFR (Non- 41.6 BUN/Creatinine Ratio 47.6 (10-20) Calcium Level 7.9 mg/dl (8.5-10.1) Date/Time Source Procedure Growth Status 10/18/17 05:00 Nasal MRSA DNA Surveillance Screen - Final Specimen Negative for MRSA by DNA Probe Complete Assessment and Plan 86 yo M with hx of Afib on Coumadin, HTN, and arthritis presented after a fall with LOC. Negative head CT with no concern for acute fracture. Concern for SIRS given hypothermia, low BP and hypoxia (new onset). No concern for pneumonia at this point. UA concerning for possible UTI vs. prostatitis. UCx and BCx pending. On empiric abx. Concern for sepsis given hypothermia, hypotension in the setting of +UA - UA > 30 WBC, large leuk esterase and 1+ occult blood - Chest CT no pneumonia noted - On vanc and zosyn empirically - Follow UCx and BCx - pending - monitor CBC and vitals Hematuria likely in the setting of UTI vs. prostatitis vs. trauma -urinary hesitancy hx and positive UA -UCx pending -possibly related to bladder outlet obstruction from BPH - consider prostate exam - continue to monitor B/l LE edema consistent with chronic venous stasis vs. cellulitis - Exam consistent with chronic venous stasis skin changes, no increased warmth or TTP of skin - MRSA swab negative - BCx pending - Continue empiric Vanc, and Zosyn - Lasix 40mg IV History of Fall with concussion given hx of LOC and retrograde amnesia - possibly mechanical vs. vagal response given nurse dressing legs at the time vs. infectious - CT Head , Thoracic, Lumbar, Chest, Abdomen/Pelvis performed with no acute fx - CT Cspine - C3-C4 adv facet disease, annulus fribrosis, facet joint long ligament calcifications consistent with CPPD - R shoulder xray concerning for hairline cortical fx inferior to glenoid; post arthroplasty HTN - low BP concern for SIRS/Sepsis - BP controlled - Continue Metoprolol 50mg daily Afib - rate controlled - Continue Metoprolol 50mg daily - Received Coumadin 1mg today Seizure disorder - Continue home phenytoin 200mg QAM and 100mg QPM Ambulatory dysfunction - gradually declining ambulation, requiring wheel chair - generalized weakened and severe arthritis - 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 Family planning on hospice care for comfort care since health declining since jul 2017 Resident Physician Supervision Note: I interviewed and examined the patient. Discussed with Dr. Godfrey and agree with findings and plan as documented in the note. Any exceptions or clarifications are listed here: None Documented By: Mckinley Wiggins reviewed HPI and current sx w pt and family vitals noted, bruising L eye, sutured laceration L eye, R shoulder pain to palp and pain with movement, cardio reg no r/m/g, lungs cta b/l no rr//w somewhat diminished, abd soft nd nt, b/l LE chronic venous stasis changes and shallow ulcers no findings c/w cellulitis fall -ddx being simple mechanical fall (son notes this would be probable with the way dad sits in chair) vs weakness from possible sepsis (see below) vs bradycardia from meds (monitor on meds on personnel monitor) vs volume depletion from meds (monitor vitals /labs on meds) vs less likely vagal possible sepsis -bacteremia or prostatitis seem most likely - will need to check rectal, follow cultures, current abx will suffice well for coverage as empiric treatment pending further w/u concussion w retrograde amnesia - appears to account for his lack of recollection about the fall/preceding events. serial neuro exams shoulder pain - Xray otherwise as above, mechanical DVT proph for now but if no s/s bleeding can escalate by tomorrow Resident Involvement: Resident Care Provided Care Provided: Adult Hospital Medicine
--- NOTE | 2017-10-18 12:45 | ECHOCARDIOGRAM REPORT ---
*NOTICE TO RECEIVING [employer] This information is strictly Confidential and protected under [place] law. [place] law prohibits you from making any further disclosure of this information unless further disclosure is expressly permitted by the written consent of the person to whom it pertains or is authorized by law. A general authorization for the release of medical or other information is not sufficient for this purpose. Hospital accepts no responsibility if the information is made available to any other person, INCLUDING THE PATIENT. Interpretation Summary * Name: JESSICA MCGOVERN Study Date: 10/18/2017 08:20 AM BP: 99/62 mmHg * Patient Location: [facility] HR: 77 * : 1930 (M/d/yyyy) Gender: Male Height: 71 in * Age: 86 yrs Ethnicity: [place] Weight: 216 lb * Ordering Physician: Lewis Ken * Referring Physician: Self, Referred * Performed By: Disha Pack RDCS * * Reason For Study: CHF * BSA: 2.2 m2 * -- Conclusions -- * Very technically limited study. * The left ventricle is hyperdynamic. * No regional wall motion abnormalities noted. * Ejection Fraction = >70 %. * There is mild concentric left ventricular hypertrophy. * There is mild to moderate tricuspid regurgitation. Procedure Details * A complete two-dimensional transthoracic echocardiogram was performed (2D, M-mode, Doppler and color flow Doppler). * The study was technically difficult. * There were technical limitations due to patient'spoor positioning Left Ventricle * The left ventricle is grossly normal size. * There is mild concentric left ventricular hypertrophy. * Ejection Fraction = >70 %. * The left ventricle is hyperdynamic. * No regional wall motion abnormalities noted. Right Ventricle * The right ventricle is not well visualized. * The right ventricular systolic function is normal as assessed by tricuspid annular plane systolic excursion (TAPSE) (normal >1.5 cm). Atria * The left atrium is not well visualized. * The right atrium is mildly dilated. * There is no evidence of atrial septal defect, but resolution does not allow assessment for a patent foramen ovale. Mitral Valve * The mitral valve is grossly normal. * There is no mitral valve stenosis. * Significant mitral regurgitation is absent. Tricuspid Valve * The tricuspid valve is not well visualized, but is grossly normal. * There is no tricuspid stenosis. * There is mild to moderate tricuspid regurgitation. Aortic Valve * The aortic valve is not well visualized. * The aortic valve opens well. * There is no significant aortic regurgitation. Pulmonic Valve * The pulmonic valve is not well visualized. Great Vessels * The aortic root is not well visualized. * The pulmonary is not well visualized. Pericardium/Pleural * There is no pericardial effusion. Great Vessels * Dilated inferior vena cava with reduced collapsability with sniff indicates an elevated right atrial pressure of 15 mmHg MMode 2D Measurements and Calculations IVSd 1.1 cm LVIDd 1.9 cm LVIDs 1.2 cm LVPWd 0.99 cm IVS/LVPW 1.1 FS 34.2 % EDV(Teich) 10.8 ml ESV(Teich) 3.6 ml EF(Teich) 66.5 % EDV(cubed) 6.6 ml ESV(cubed) 1.9 ml EF(cubed) 71.5 % LV mass(C)d 48.5 grams LV mass(C)dI 22.3 grams/m\S\2 SV(Teich) 7.2 ml SI(Teich) 3.3 ml/m\S\2 SV(cubed) 4.7 ml SI(cubed) 2.2 ml/m\S\2 Ao root diam 1.9 cm Ao root area 2.9 cm\S\2 ACS 2.1 cm asc Aorta Diam 2.9 cm LVAd ap4 16.4 cm\S\2 LVLd ap4 6.9 cm EDV(MOD-sp4) 32.9 ml EDV(sp4-el) 32.9 ml LVAs ap4 9.0 cm\S\2 LVLs ap4 5.7 cm ESV(MOD-sp4) 12.4 ml ESV(sp4-el) 12.1 ml EF(MOD-sp4) 62.2 % EF(sp4-el) 63.1 % LVAd ap2 16.5 cm\S\2 LVLd ap2 6.9 cm EDV(MOD-sp2) 32.6 ml EDV(sp2-el) 33.6 ml LVAs ap2 9.2 cm\S\2 LVLs ap2 6.1 cm ESV(MOD-sp2) 13.4 ml ESV(sp2-el) 11.8 ml EF(MOD-sp2) 59.1 % EF(sp2-el) 64.8 % LVLd %diff -0.94 % EDV(MOD-bp) 32.4 ml LVLs %diff 6.8 % ESV(MOD-bp) 13.2 ml EF(MOD-bp) 59.2 % SV(MOD-sp4) 20.5 ml SI(MOD-sp4) 9.4 ml/m\S\2 SV(MOD-sp2) 19.3 ml SI(MOD-sp2) 8.8 ml/m\S\2 SV(MOD-bp) 19.2 ml SI(MOD-bp) 8.8 ml/m\S\2 SV(sp4-el) 20.7 ml SI(sp4-el) 9.5 ml/m\S\2 SV(sp2-el) 21.8 ml SI(sp2-el) 10.0 ml/m\S\2 Doppler Measurements and Calculations MV E max mike 64.5 cm/sec MV A max mike 93.1 cm/sec MV E/A 0.69 Ao V2 max 112.2 cm/sec Ao max PG 5.0 mmHg Ao max PG (full) 1.9 mmHg LV V1 max PG 3.2 mmHg LV V1 max 88.8 cm/sec PA V2 max 71.9 cm/sec PA max PG 2.1 mmHg PA acc slope 561.2 cm/sec\S\2 PA acc time 0.10 sec TR max mike 168.3 cm/sec PA pr(Accel) 36.2 mmHg
--- NOTE | 2017-10-18 14:01 | DIAGNOSTIC IMAGING REPORT ---
R SHOULDER MIN 2 VIEWS ROUTINE CLINICAL HISTORY: fall pain. Trauma. COMPARISON: None. DISCUSSION: Right shoulder arthroplasty. Good contact between prosthetic and underlying bone. Potential hairline cortical fracture of the inferior glenoid. No significant displacement. The humeral prosthetic is in good position with no acute bony abnormality. There is no evidence for soft tissue swelling. IMPRESSION: 1. Probable hairline cortical fracture inferior glenoid. 2. Otherwise negative study post right shoulder arthroplasty The above report was generated using voice recognition software. It may contain grammatical, syntax or spelling errors. Electronically signed by: Hector Mcgowan M.D. 10/18/2017 2:00 PM Dictated Date/Time: 10/18/2017 1:59 PM
[2017-10-18] MEDS: LIDODERM (LIDOCAINE) PATCH 5% TD SCH (15:09)
[2017-10-18] MEDS ORDERED: WARFARIN SOD 1 MG TAB PO ONE (16:00)
[2017-10-18] MEDS ORDERED: NURSING DECISION MEDICATION ORDER PRN (16:45)
[2017-10-18] MEDS ORDERED: SODIUM CHLORIDE 0.65% NA SOLN 45 ML (OCEAN) PRN (17:00)
[2017-10-18] MEDS: DORZOLAMIDE HCL 2% OPH SOLN 10 ML BTL OPB SCH (21:38)
[2017-10-18] MEDS: ACETAMINOPHEN 500 MG TAB PO SCH (21:41)
[2017-10-18] MEDS ORDERED: VANCOMYCIN IV 1,500 MG in SODIUM CHLORIDE 0.9% 500ML 500 ML IV SCH (22:00)
[2017-10-18] MEDS ORDERED: DICLOFENAC SOD 1% GEL 100 GM TUBE EXT PRN (22:15)
[2017-10-19] VITALS (7 sets, daily range): BP systolic 99–115; BP diastolic 64–73; PULSE 67–89; TEMP 34.8–36.6; O2SAT 90–98
[2017-10-19] MEDS: TRAMADOL HCL 50 MG TAB PO PRN ×3 (00:35→10:42)
[2017-10-19] MEDS: PIPERACILL/TAZOBAC IV 3.375 GM in NSS 100ML IV SCH ×3 (05:28→22:11)
[2017-10-19] MEDS: ACETAMINOPHEN 500 MG TAB PO SCH ×3 (05:38→22:12)
[2017-10-19 07:19] LABS: BASO % 0.1 %; BASO ABS # 0.01 K/uL (0-0.2); EOS % 1.3 %; EOS ABS # 0.12 K/uL (0-0.5); HEMATOCRIT 35.3 % (42-52); HEMOGLOBIN 11.7 g/dL (14.0-18.0); IG# 0.02 K/uL (0.00-0.02); LYMPH % 21.7 %; LYMPH ABS # 1.94 K/uL (1.2-3.4); MEAN CELL VOLUME 93.6 fL (80-100); MEAN CORPUSCULAR HGB CONC 33.1 g/dl (32-36); MEAN PLATELET VOLUME 10.7 fL (7.4-10.4); MONO % 8.3 %; MONO ABS # 0.74 K/uL (0.11-0.59); NEUT % 68.4 %; NEUT ABS # 6.12 K/uL (1.4-6.5); PLATELET COUNT 153 K/uL (130-400); RED CELL DISTRIBUTION WIDTH CV 15.3 % (11.5-14.5); RED CELL DISTRIBUTION WIDTH SD 52.3 fL (36.4-46.3); WHITE BLOOD COUNT 8.95 K/uL (4.8-10.8)
[2017-10-19 07:28] LABS: INR 1.4 (0.9-1.1)
[2017-10-19] MEDS: PHENYTOIN SODIUM ER 100 MG CAP PO SCH ×2 (07:43→20:47)
[2017-10-19] MEDS: METOPROLOL SUCC 50MG EXT REL TAB PO SCH (07:44)
[2017-10-19] MEDS: DORZOLAMIDE HCL 2% OPH SOLN 10 ML BTL OPB SCH ×2 (07:44→20:47)
[2017-10-19] MEDS: LIDODERM (LIDOCAINE) PATCH 5% TD SCH (07:45)
[2017-10-19 07:46] LABS: CREATININE 2.12 mg/dl (0.60-1.40); POTASSIUM 5.4 mmol/L (3.5-5.1)
[2017-10-19] MEDS ORDERED: TRAMADOL HCL 50 MG TAB PO ONE (10:53)
[2017-10-19] MEDS ORDERED: NALOXONE HCL 0.4 MG/1 ML VIAL/CARP IV PRN (11:00)
[2017-10-19] MEDS ORDERED: MoRPHine SULFATE 4 MG/ML 1 ML CARP\\VIAL IV PRN (11:00)
--- NOTE | 2017-10-19 11:13 | Family Medicine Progress Note ---
Progress Note Date of Service October 19, 2017. Subjective Pt evaluation today including: conversation w/ patient, conversation w/ family , physical exam, chart review, lab review Pain: persistent shoulder, neck and R arm pain (was very uncomfortable last night PO Intake: tolerating Voiding: douglas catheter in place This AM pt reports significant pain in shoulders, neck and R arm which kept him up most of the night. Continues to need oxygen and reporting numbness in legs/ feet. Legs look better per family today. Constitutional: No fever Respiratory: + shortness of breath Cardiovascular: No chest pain Abdomen: No pain, No nausea, No vomiting Musculoskeletal: + problem reported (Pain in shoulders, neck and R arm) Neurologic: + numbness/tingling (LEs) Medications Current Inpatient Medications Medications (Trade) Dose Ordered Sig/Shani Route Start Time Stop Time Status Last Admin Dose Admin Ioversol (Optiray 320) 100 ml UD PRN IV 10/17/17 18:00 10/21/17 17:59 Al Hydrox/Mg Hydrox/Simethicone (Maalox Max Susp) 15 ml Q4H PRN PO 10/17/17 23:30 11/16/17 23:29 Magnesium Hydroxide (Milk Of Magnesia Susp) 30 ml Q6H PRN PO 10/17/17 23:30 11/16/17 23:29 Polyethylene (Miralax Powder Packet) 17 gm DAILY PRN PO 10/17/17 23:30 11/16/17 23:29 Ondansetron HCl (Zofran Inj) 4 mg Q6H PRN IV 10/17/17 23:30 11/16/17 23:29 Metoprolol Succinate (Toprol Xl Tab) 50 mg DAILY PO 10/18/17 09:00 11/17/17 08:59 10/19/17 07:44 50 MG Phenytoin Sodium (Dilantin Er Cap) 100 mg QPM PO 10/18/17 21:00 11/17/17 20:59 10/18/17 21:40 100 MG Phenytoin Sodium (Dilantin Er Cap) 200 mg QAM PO 10/18/17 09:00 11/17/17 08:59 10/19/17 07:43 200 MG Potassium Chloride (Klor-Con Tab) 40 meq BID PO 10/18/17 09:00 11/17/17 08:59 Future Hold Miscellaneous Information (Consult) 1 ea UD PRN N/A 10/17/17 23:30 11/16/17 23:29 Miscellaneous Information (Consult) 1 ea UD PRN N/A 10/17/17 23:30 11/16/17 23:29 Furosemide 40 mg/ Syringe 4 ml @ 4 mls/min DAILY IV 10/18/17 09:00 11/17/17 08:59 Future Hold 10/18/17 08:01 4 MLS/MIN Piperacillin Sod/ Tazobactam Sod 3.375 gm/Sodium Chloride 115 ml @ 28.75 mls/ hr Q8H IV 10/18/17 06:00 10/25/17 05:59 10/19/17 05:28 28.75 MLS/HR Vancomycin HCl 1500 mg/Sodium Chloride 530 ml @ 200 mls/hr Q24H IV 10/18/17 22:00 10/28/17 21:59 10/18/17 21:43 200 MLS/HR Acetaminophen (Tylenol Tab) 1,000 mg Q8H PO 10/18/17 22:00 11/17/17 21:59 10/18/17 21:41 1,000 MG Lidocaine (Lidoderm Patch 5%) 1 patch QAM TD 10/18/17 13:45 11/17/17 13:44 10/19/17 07:45 1 PATCH Miscellaneous (Remove Lidoderm Patch) 1 ea DAILY@21 N/A 10/18/17 21:00 11/17/17 20:59 10/18/17 21:00 1 EA Sodium Chloride (Ray Nasal Brusly) 1 sprays PRN PRN NA 10/18/17 17:00 11/17/17 16:59 10/18/17 23:15 1 SPRAYS Dorzolamide HCl (Trusopt 2% Oph Soln) 1 drops BID OPB 10/18/17 21:00 11/17/17 20:59 10/19/17 07:44 1 DROPS Diclofenac Sodium (Voltaren 1% Top Gel) 1 appln BID PRN EXT 10/18/17 22:15 11/17/17 22:14 10/18/17 23:12 1 APPLN Tramadol HCl (Ultram Tab) 25 mg Q4H PO 10/19/17 12:30 11/18/17 00:29 Morphine Sulfate (MoRPHine SULFATE INJ) 4 mg Q4 PRN IV 10/19/17 11:00 11/02/17 10:59 Naloxone HCl (Narcan Inj) 0.4 mg UD PRN IV 10/19/17 11:00 11/18/17 10:59 Gabapentin (Neurontin Cap) 300 mg HS PO 10/19/17 21:00 11/18/17 20:59 Objective Vital Signs Date Time Temp Pulse Resp B/P (MAP) Pulse Ox O2 Delivery O2 Flow Rate FiO2 10/19/17 11:21 73 20 115/69 (84) 92 Nasal Cannula 2.0 10/19/17 08:00 90 Nasal Cannula 2.0 10/19/17 07:31 36.5 85 20 109/73 (85) 91 Oxymask 2.0 10/19/17 04:15 34.8 89 22 99/72 (81) 90 Room Air 10/19/17 04:00 Room Air Oxymask 10/18/17 23:59 Room Air Oxymask 10/18/17 23:59 36.2 80 26 102/62 (75) 96 Room Air 10/18/17 23:24 36.3 81 22 101/58 (72) 92 10/18/17 20:00 93 Room Air 10/18/17 19:40 36.2 83 18 98/57 (71) 93 Room Air 10/18/17 17:48 94 Room Air 10/18/17 16:00 99 Oxymask 2.0 10/18/17 15:30 35.5 79 22 88/41 (57) 98 2.0 91/53 (66) 10/18/17 12:00 92 Nasal Cannula 2.0 Oxymask 10/18/17 11:46 35.1 82 18 91/54 (66) 92 2.0 Physical Exam General Appearance: + mild distress (appears tachypneic ), + pertinent finding (appears fatigued) Eyes: normal inspection Respiratory/Chest: lungs clear, + decreased breath sounds (dminished BS posterior lung g[place]) Cardiovascular: regular rate, rhythm, no murmur Abdomen: normal bowel sounds, non tender, soft Extremities: non-tender, + swelling (1+ LE edema bilaterally with chronic venous stasis changes and small abrasion over RLE (band-aid applied)), + pertinent finding (R arm tender to palpation) Neurologic/Psychiatric: alert Laboratory Results 10/19/17 06:56 Red Blood Count 3.77, Mean Corpuscular Volume 93.6, Mean Corpuscular Hemoglobin 31.0, Mean Corpuscular Hemoglobin Concent 33.1, Mean Platelet Volume 10.7, Neutrophils (%) (Auto) 68.4, Lymphocytes (%) (Auto) 21.7, Monocytes (%) (Auto) 8.3, Eosinophils (%) (Auto) 1.3, Basophils (%) (Auto) 0.1, Neutrophils # (Auto) 6.12, Lymphocytes # (Auto) 1.94, Monocytes # (Auto) 0.74, Eosinophils # (Auto) 0.12, Basophils # (Auto) 0.01 10/19/17 06:56 Test 10/19/17 06:56 White Blood Count 8.95 K/uL (4.8-10.8) Red Blood Count 3.77 M/uL (4.7-6.1) Hemoglobin 11.7 g/dL (14.0-18.0) Hematocrit 35.3 % (42-52) Mean Corpuscular Volume 93.6 fL (80-100) Mean Corpuscular Hemoglobin 31.0 pg (25-34) Mean Corpuscular Hemoglobin Concent 33.1 g/dl (32-36) Platelet Count 153 K/uL (130-400) Mean Platelet Volume 10.7 fL (7.4-10.4) Neutrophils (%) (Auto) 68.4 % Lymphocytes (%) (Auto) 21.7 % Monocytes (%) (Auto) 8.3 % Eosinophils (%) (Auto) 1.3 % Basophils (%) (Auto) 0.1 % Neutrophils # (Auto) 6.12 K/uL (1.4-6.5) Lymphocytes # (Auto) 1.94 K/uL (1.2-3.4) Monocytes # (Auto) 0.74 K/uL (0.11-0.59) Eosinophils # (Auto) 0.12 K/uL (0-0.5) Basophils # (Auto) 0.01 K/uL (0-0.2) RDW Standard Deviation 52.3 fL (36.4-46.3) RDW Coefficient of Variation 15.3 % (11.5-14.5) Immature Granulocyte % (Auto) 0.2 % Immature Granulocyte # (Auto) 0.02 K/uL (0.00-0.02) Prothrombin Time 15.0 SECONDS (9.0-12.0) Prothromb Time International Ratio 1.4 (0.9-1.1) Anion Gap 6.0 mmol/L (3-11) Est Creatinine Clear Calc Drug Dose 28.6 ml/min Estimated GFR () 31.5 Estimated GFR (Non- 27.2 BUN/Creatinine Ratio 34.6 (10-20) Calcium Level 8.0 mg/dl (8.5-10.1) Assessment and Plan 86 yo M with hx of Afib on Coumadin, HTN, and arthritis presented after a fall with LOC. Negative head CT with no concern for acute fracture based on Ct chest , C-spine, T-spine and L-spine. Found to have hairline R shoulder cortical fracture in inferior glenoid region. Initial concern for SIRS given hypothermia (now improved temp of 36.5), low BP (persistent/occasional) and hypoxia (new onset). No concern for pneumonia at this point. hx and UA concerning for possible UTI vs. prostatitis. UCx pending. BCx NGTD. On empiric abx. Concern for sepsis given hypothermia (improved), hypotension and new onset hypoxia in the setting of +UA - UA > 30 WBC, large leuk esterase and 1+ occult blood - UCx pending - BCx NGTD - Chest CT no pneumonia noted - On zosyn empirically; also received vanc x 2 days - Ordered incentive spirometer - monitor CBC and vitals, follow cultures Hematuria likely in the setting of UTI vs. prostatitis vs. trauma (urine clear now) -urinary hesitancy hx and positive UA -UCx pending -possibly related to bladder outlet obstruction from BPH - defer prostate exam given significant discomfort at this time - continue to monitor B/l LE edema consistent with chronic venous stasis vs. CHF vs. cellulitis - Exam consistent with chronic venous stasis skin changes, no increased warmth or TTP of skin; edema improved from 3+ to 1+ - ECHO: EF > 70%, hyperdynamic LV - MRSA swab negative - BCx NGTD - Continue empiric Zosyn - Lasix 40mg IV received x 1 with improvement (DC and place home lasix on hold given increase in Cr and hypovolemia) History of Fall with concussion given hx of LOC and retrograde amnesia - possibly mechanical vs. vagal response given nurse dressing legs at the time vs. 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 - R shoulder xray concerning for hairline cortical fx inferior to glenoid; post arthroplasty - ortho consulted, sling ordered - Pain control - Tramadol 25mg Q4H shani - Morphine 4mg IV Q4H PRN - Tylenol 1000mg Q8H - Lidocaine 5% patch QAM - Gabapentin 300mg QHS HTN - low BP concern for SIRS/Sepsis - improving - BP controlled - Continue Metoprolol 50mg daily Afib - rate controlled - Continue Metoprolol 50mg daily - On coumadin Seizure disorder - Continue home phenytoin 200mg QAM and 100mg QPM Ambulatory dysfunction - gradually declining ambulation, requiring wheel chair - generalized weakened and severe arthritis - 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 Family planning on hospice care for comfort care since health declining since jul 2017 Resident Physician Supervision Note: I interviewed and examined the patient. Discussed with Dr. Godfrey and agree with findings and plan as documented in the note. Any exceptions or clarifications are listed here: None Documented By: Mckinley Wiggins no significant HPI or ROS obtainable from pt, does have shoulder pain vitals noted, bruising L eye, sutured laceration L eye, breathing unlabored no pallor or icterus fall -seems like volume depletion + general weakness most likely; sepsis from below possible. continue to follow possible sepsis -bacteremia or prostatitis seem most likely - after discussion of risks/ benefits treating empirically concussion w retrograde amnesia - appears to account for his lack of recollection about the fall/preceding events. serial neuro exams shoulder pain - pain control anticoagulatio slowly titrate Resident Involvement: Resident Care Provided Care Provided: Adult [facility]
[2017-10-19] MEDS: TRAMADOL HCL 50 MG TAB PO SCH ×3 (13:11→20:46)
--- NOTE | 2017-10-19 15:38 | CONSULTATION REPORT ---
DATE OF CONSULTATION: 10/19/2017 CHIEF COMPLAINT: Longstanding neck and shoulder pain. HISTORY OF PRESENT ILLNESS: The patient had a fall and had significant increase in neck and shoulder pain. Over the last night, he was admitted where x-rays of his shoulder and a CT of his cervical spine were done and x-ray report showed evidence of a probable hairline fracture about the glenoid. The patient has a total shoulder cemented in place. PHYSICAL EXAMINATION: The patient has minimal irritability on passive motion of the shoulder. Neurologically, the patient admits of numbness in both hands and feet. Denies being diabetic. X-RAY EVALUATION: I reviewed the x-rays. Lucency noted on the glenoid. In my opinion, represents a radiolucency at the bone cement interface of his cemented glenoid component. I doubt this represents a new fracture. 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 RECOMMENDATION: May allow use of the shoulder as tolerated. Pain management. Consider consultation of pain management and/or spine consultation.
[2017-10-19] MEDS: WARFARIN SOD 2 MG TAB PO SCH (16:16)
[2017-10-19] MEDS ORDERED: GABAPENTIN 300 MG CAP PO SCH (21:00)
[2017-10-20] VITALS (10 sets, daily range): BP systolic 63–130; BP diastolic 41–85; PULSE 48–70; TEMP 36.2–36.5; O2SAT 88–97
[2017-10-20] MEDS: TRAMADOL HCL 50 MG TAB PO SCH ×3 (00:14→08:06)
[2017-10-20] MEDS ORDERED: SODIUM CHLORIDE 0.9% 1000ML 1,000 ML IV SCH (04:30)
[2017-10-20 05:01] LABS: BASO % 0.1 %; BASO ABS # 0.01 K/uL (0-0.2); EOS % 1.8 %; EOS ABS # 0.12 K/uL (0-0.5); HEMATOCRIT 38.1 % (42-52); HEMOGLOBIN 12.3 g/dL (14.0-18.0); IG# 0.02 K/uL (0.00-0.02); LYMPH % 27.4 %; LYMPH ABS # 1.85 K/uL (1.2-3.4); MEAN CELL VOLUME 95.5 fL (80-100); MEAN CORPUSCULAR HEMOGLOBIN 30.8 pg (25-34); MEAN PLATELET VOLUME 10.7 fL (7.4-10.4); MONO % 10.2 %; MONO ABS # 0.69 K/uL (0.11-0.59); NEUT % 60.2 %; NEUT ABS # 4.05 K/uL (1.4-6.5); PLATELET COUNT 156 K/uL (130-400); RED CELL DISTRIBUTION WIDTH CV 15.7 % (11.5-14.5); RED CELL DISTRIBUTION WIDTH SD 55.2 fL (36.4-46.3); WHITE BLOOD COUNT 6.74 K/uL (4.8-10.8)
[2017-10-20 05:04] LABS: MEAN CORPUSCULAR HGB CONC 32.3 g/dl (32-36)
[2017-10-20 05:10] LABS: INR 1.6 (0.9-1.1)
[2017-10-20 05:18] LABS: CALCIUM 7.7 mg/dl (8.5-10.1); CREATININE 2.66 mg/dl (0.60-1.40); POTASSIUM 5.9 mmol/L (3.5-5.1)
[2017-10-20] MEDS: ACETAMINOPHEN 500 MG TAB PO SCH ×4 (06:26→22:00)
[2017-10-20] MEDS: PIPERACILL/TAZOBAC IV 3.375 GM in NSS 100ML IV SCH ×3 (06:26→22:28)
[2017-10-20] MEDS ORDERED: SODIUM CHLORIDE 0.9% 1000ML 1,000 ML IV STA (08:02)
[2017-10-20] MEDS: METOPROLOL SUCC 50MG EXT REL TAB PO SCH (08:06)
[2017-10-20] MEDS: PHENYTOIN SODIUM ER 100 MG CAP PO SCH ×2 (08:16→21:00)
[2017-10-20] MEDS: LIDODERM (LIDOCAINE) PATCH 5% TD SCH (08:16)
[2017-10-20] MEDS: DORZOLAMIDE HCL 2% OPH SOLN 10 ML BTL OPB SCH ×2 (08:16→21:05)
[2017-10-20] MEDS ORDERED: MoRPHine SULFATE 4 MG/ML 1 ML CARP\\VIAL IV PRN (10:00)
[2017-10-20] MEDS ORDERED: SODIUM CHLOR 0.45% + 20MEQ KCL 1,000 ML IV SCH (10:30)
[2017-10-20] MEDS ORDERED: SODIUM CHLORIDE 0.9% 1000ML 1,000 ML IV ONE (11:30)
[2017-10-20] MEDS ORDERED: NURSING VERBAL MED ORDER ONE ×2 (11:30→18:15)
--- NOTE | 2017-10-20 12:11 | Clinical Documentation Query ---
Dr. FU, [facility] : CLINICAL DOCUMENTATION QUERIES QUERY 1 OF 2 Please Document Present on Admission Status for - Sepsis Documentation includes the following: Concern for sepsis given hypothermia, hypotension in the setting of +UA - UA > 30 WBC, large leuk esterase and 1+ occult blood - Chest CT no pneumonia noted - On vanc and zosyn empirically - Follow UCx and BCx - pending - monitor CBC and vitals H&P contained no such documentation. 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 Thank you. ( ) (Possible) Sepsis due to UTI, POA ( ) (Possible) Sepsis due to UTI, not POA QUERY 2 OF 2 Historical GFR range from 10/03/14 to 10/17/17 of 37-49 ml/min. BUN and creatinine on admission of 73 mg/dl and 1.45 mg/dl. This a.m. (10/20/17), repeat values are 77 mg/dl and 2.66 mg/dl. As appropriate, consider documentation as suggested below. Thank you. In your clinical opinion is this patient being managed for: ( ) GAMA on CKD stage 3 ( ) Not Agree ( ) Other explanation of clinical findings (Please Explain. If no explanation given, this would be considered a no response.) ( ) Unable to determine ( ) Need to Discuss (Please call CDS via extension or qliq. If no interaction occurs this is considered a no response.) The medical record reflects the following clinical findings, treatment, and risk factors. Clinical Indicators: As above Treatment: IVF, serial chemistries Risk Factors: Age, possible sepsis, infection, hypotension, historical hypertension Please clarify and document your clinical opinion in the progress notes and discharge summary. Terms such as "probable", "suspected", "likely", "questionable", "possible", or "still to be ruled out" are acceptable. IF IN AGREEMENT, YOU MUST DOCUMENT ABOVE DIAGNOSTIC STATEMENT IN DAILY PROGRESS NOTES AND DISCHARGE SUMMARY. This document is not part of the patient's record. Thank You, Karsten Cook, RN [phone]
--- NOTE | 2017-10-20 15:14 | Family Medicine Progress Note ---
Progress Note Date of Service October 20, 2017. Subjective Pt evaluation today including: conversation w/ patient, physical exam, chart review, lab review Pain: reports improved PO Intake: not tolerating diet Voiding: douglas catheter in place This AM pt was very drowsy however noted to feeling better and reported improved pain. Per nursing, BP in the 60-70s/40-50s range Constitutional: No fever Respiratory: + shortness of breath Cardiovascular: No chest pain Abdomen: No pain, No nausea, No vomiting Musculoskeletal: + problem reported (neck, shoulder and R arm pain) Medications Current Inpatient Medications Medications (Trade) Dose Ordered Sig/Shani Route Start Time Stop Time Status Last Admin Dose Admin Ioversol (Optiray 320) 100 ml UD PRN IV 10/17/17 18:00 10/21/17 17:59 Al Hydrox/Mg Hydrox/Simethicone (Maalox Max Susp) 15 ml Q4H PRN PO 10/17/17 23:30 11/16/17 23:29 Magnesium Hydroxide (Milk Of Magnesia Susp) 30 ml Q6H PRN PO 10/17/17 23:30 11/16/17 23:29 Polyethylene (Miralax Powder Packet) 17 gm DAILY PRN PO 10/17/17 23:30 11/16/17 23:29 Ondansetron HCl (Zofran Inj) 4 mg Q6H PRN IV 10/17/17 23:30 11/16/17 23:29 Metoprolol Succinate (Toprol Xl Tab) 50 mg DAILY PO 10/18/17 09:00 11/17/17 08:59 Future Hold 10/19/17 07:44 50 MG Phenytoin Sodium (Dilantin Er Cap) 100 mg QPM PO 10/18/17 21:00 11/17/17 20:59 10/19/17 20:47 100 MG Phenytoin Sodium (Dilantin Er Cap) 200 mg QAM PO 10/18/17 09:00 11/17/17 08:59 10/20/17 08:16 200 MG Potassium Chloride (Klor-Con Tab) 40 meq BID PO 10/18/17 09:00 11/17/17 08:59 Future Hold Miscellaneous Information (Consult) 1 ea UD PRN N/A 10/17/17 23:30 11/16/17 23:29 Furosemide 40 mg/ Syringe 4 ml @ 4 mls/min DAILY IV 10/18/17 09:00 11/17/17 08:59 Future Hold 10/18/17 08:01 4 MLS/MIN Piperacillin Sod/ Tazobactam Sod 3.375 gm/Sodium Chloride 115 ml @ 28.75 mls/ hr Q8H IV 10/18/17 06:00 10/25/17 05:59 10/20/17 06:26 28.75 MLS/HR Acetaminophen (Tylenol Tab) 1,000 mg Q8H PO 10/18/17 22:00 11/17/17 21:59 10/20/17 06:26 1,000 MG Lidocaine (Lidoderm Patch 5%) 1 patch QAM TD 10/18/17 13:45 11/17/17 13:44 10/20/17 08:16 1 PATCH Miscellaneous (Remove Lidoderm Patch) 1 ea DAILY@21 N/A 10/18/17 21:00 11/17/17 20:59 10/19/17 20:46 1 EA Sodium Chloride (Churchill Nasal [place]) 1 sprays PRN PRN NA 10/18/17 17:00 11/17/17 16:59 10/18/17 23:15 1 SPRAYS Dorzolamide HCl (Trusopt 2% Oph Soln) 1 drops BID OPB 10/18/17 21:00 11/17/17 20:59 10/20/17 08:16 1 DROPS Diclofenac Sodium (Voltaren 1% Top Gel) 1 appln BID PRN EXT 10/18/17 22:15 11/17/17 22:14 10/18/17 23:12 1 APPLN Tramadol HCl (Ultram Tab) 25 mg Q4H PO 10/19/17 12:30 11/18/17 00:29 Future Hold 10/20/17 00:14 25 MG Naloxone HCl (Narcan Inj) 0.4 mg UD PRN IV 10/19/17 11:00 11/18/17 10:59 Gabapentin (Neurontin Cap) 300 mg HS PO 10/19/17 21:00 11/18/17 20:59 Future Hold 10/19/17 20:47 300 MG Warfarin Sodium (Coumadin Tab) 2 mg DAILY@16 PO 10/19/17 16:00 11/18/17 15:59 10/19/17 16:16 2 MG Morphine Sulfate (MoRPHine SULFATE INJ) 2 mg Q4 PRN IV 10/20/17 10:00 11/02/17 10:59 Potassium Chloride/Sodium Chloride 1,000 ml @ 125 mls/hr Q8H IV 10/20/17 10:30 11/19/17 10:29 10/20/17 10:48 125 MLS/HR Objective Vital Signs Date Time Temp Pulse Resp B/P (MAP) Pulse Ox O2 Delivery O2 Flow Rate FiO2 10/20/17 12:06 96 Nasal Cannula 2.0 10/20/17 11:22 54 16 70/44 (53) 93 Nasal Cannula 2.0 10/20/17 10:37 52 92/60 (71) 10/20/17 10:07 36.5 48 63/41 (48) 95 Room Air 10/20/17 08:10 96 Nasal Cannula 2.0 10/20/17 06:49 36.2 60 19 79/55 (63) 96 Nasal Cannula 2.0 10/20/17 04:15 Nasal Cannula 2.0 10/20/17 04:09 36.2 52 19 79/52 (61) 97 Nasal Cannula 2.0 10/20/17 00:30 Nasal Cannula 2.0 10/19/17 23:55 36.2 71 18 99/64 (76) 93 Nasal Cannula 2.0 10/19/17 20:16 36.4 67 18 112/72 (85) 94 Nasal Cannula 2.0 10/19/17 20:15 Nasal Cannula 2.0 10/19/17 16:00 Nasal Cannula 2.0 10/19/17 15:38 36.6 76 18 106/67 (80) 98 Nasal Cannula 2.0 Physical Exam General Appearance: + mild distress Eyes: normal inspection Respiratory/Chest: lungs clear, + decreased breath sounds, + pertinent finding (improved WOB) Cardiovascular: no murmur, + bradycardia, + irregularly irregular Abdomen: normal bowel sounds, non tender, soft Extremities: non-tender, + swelling (1+ LLE and trace RLE edema) Neurologic/Psychiatric: + pertinent finding (drowsy) Skin: + pertinent finding (chronic venous stasis skin changes LEs) Laboratory Results 10/20/17 04:40 Red Blood Count 3.99, Mean Corpuscular Volume 95.5, Mean Corpuscular Hemoglobin 30.8, Mean Corpuscular Hemoglobin Concent 32.3, Mean Platelet Volume 10.7, Neutrophils (%) (Auto) 60.2, Lymphocytes (%) (Auto) 27.4, Monocytes (%) (Auto) 10.2, Eosinophils (%) (Auto) 1.8, Basophils (%) (Auto) 0.1, Neutrophils # (Auto ) 4.05, Lymphocytes # (Auto) 1.85, Monocytes # (Auto) 0.69, Eosinophils # (Auto ) 0.12, Basophils # (Auto) 0.01 10/20/17 04:40 Test 10/20/17 04:40 White Blood Count 6.74 K/uL (4.8-10.8) Red Blood Count 3.99 M/uL (4.7-6.1) Hemoglobin 12.3 g/dL (14.0-18.0) Hematocrit 38.1 % (42-52) Mean Corpuscular Volume 95.5 fL (80-100) Mean Corpuscular Hemoglobin 30.8 pg (25-34) Mean Corpuscular Hemoglobin Concent 32.3 g/dl (32-36) Platelet Count 156 K/uL (130-400) Mean Platelet Volume 10.7 fL (7.4-10.4) Neutrophils (%) (Auto) 60.2 % Lymphocytes (%) (Auto) 27.4 % Monocytes (%) (Auto) 10.2 % Eosinophils (%) (Auto) 1.8 % Basophils (%) (Auto) 0.1 % Neutrophils # (Auto) 4.05 K/uL (1.4-6.5) Lymphocytes # (Auto) 1.85 K/uL (1.2-3.4) Monocytes # (Auto) 0.69 K/uL (0.11-0.59) Eosinophils # (Auto) 0.12 K/uL (0-0.5) Basophils # (Auto) 0.01 K/uL (0-0.2) RDW Standard Deviation 55.2 fL (36.4-46.3) RDW Coefficient of Variation 15.7 % (11.5-14.5) Immature Granulocyte % (Auto) 0.3 % Immature Granulocyte # (Auto) 0.02 K/uL (0.00-0.02) Prothrombin Time 16.2 SECONDS (9.0-12.0) Prothromb Time International Ratio 1.6 (0.9-1.1) Anion Gap 2.0 mmol/L (3-11) Est Creatinine Clear Calc Drug Dose 22.8 ml/min Estimated GFR () 23.9 Estimated GFR (Non- 20.6 BUN/Creatinine Ratio 29.0 (10-20) Calcium Level 7.7 mg/dl (8.5-10.1) Assessment and Plan 86 yo M with hx of Afib on Coumadin, HTN, and arthritis presented after a fall with LOC. Negative head CT with no concern for acute fracture based on Ct chest , C-spine, T-spine and L-spine. Found to have hairline R shoulder cortical fracture in inferior glenoid region. Initial concern for SIRS given hypothermia (now improved temp of 36.5), low BP and hypoxia (new onset). No concern for pneumonia at this point. Hx and UA concerning for possible UTI vs. prostatitis. UCx neg. BCx NGTD. On empiric abx. TODAY BP low in 60-70s/40-50s and HR in the 30s-50s range but improved to 130/ 70 and HR improved to 60s by the afternoon after 3L of IVF bolus and mIVF at 125mls/hr. Likely hypovolemic in the setting of initial Lasix and decreased PO intake. Concern for sepsis given hypothermia (improved), hypotension (imp) and new onset hypoxia in the setting of +UA - UA > 30 WBC, large leuk esterase and 1+ occult blood - UCx neg - BCx NGTD - Chest CT no pneumonia noted - On zosyn empirically; also received vanc x 2 days - Ordered incentive spirometer - Received 3L IVF bolus today for worsneing hypotension likely in the setting of hypovolemia from decreased PO intake and recent Lasix use - Continue mIVF at 125mls/hr - monitor CBC and vitals Hematuria likely in the setting of UTI vs. prostatitis vs. trauma (urine clear now) - urinary hesitancy hx and positive UA - UCx neg - possibly related to bladder outlet obstruction from BPH - defer prostate exam given significant discomfort at this time - continue to monitor B/l LE edema consistent with chronic venous stasis vs. CHF vs. cellulitis - Exam consistent with chronic venous stasis skin changes, no increased warmth or TTP of skin; edema improved from 3+ to 1+ - ECHO: EF > 70%, hyperdynamic LV - MRSA swab negative - BCx NGTD - Continue empiric Zosyn - Lasix 40mg IV received x 1 with improvement (DC and place home lasix on hold given increase in Cr and hypovolemia) History of Fall with concussion given hx of LOC and retrograde amnesia - possibly mechanical vs. vagal response given nurse dressing legs at the time vs. 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 - R shoulder xray concerning for hairline cortical fx inferior to glenoid; post arthroplasty - ortho consulted, sling ordered - Pain control - Tramadol 25mg Q4H shani - HOLDING FOR HYPOTENSION TODAY - Morphine 2mg IV Q4H PRN - Tylenol 1000mg Q8H - Lidocaine 5% patch QAM - Gabapentin 300mg QHS - HOLDING FOR HYPOTENSION AND DROWSINESS TODAY HTN - low BP concern for SIRS/Sepsis - improving s/p IVF - BP controlled - HOLD Metoprolol 50mg daily - given low BP today Afib - rate controlled - Holding Metoprolol 50mg daily - On coumadin 2mg daily Seizure disorder - Continue home phenytoin 200mg QAM and 100mg QPM Ambulatory dysfunction - gradually declining ambulation, requiring wheel chair - generalized weakened and severe arthritis - 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 Family planning on hospice care for comfort care since health declining since jul 2017 Resident Physician Supervision Note: I interviewed and examined the patient. Discussed with Dr. Godfrey and agree with findings and plan as documented in the note. Any exceptions or clarifications are listed here: None Documented By: Mckinley Wiggins no meaningful HPI or ROS obtainable from pt seen many many times today (?actual number, but many) first visit somewhat responsive but non meaningful vocalizations, later was much more somnolent wtih shallow breathing, later more alert thrashing w bipap extensively updated family throughout the day as well viatls noted see above, lungs clear but quiet heart distant no pallor or icterus , skin color actually better than yesterday, abd soft nd nt exam otherwise as above somnolence - delirium + ARF + hypercapnic respiratory failure (suspect was a late in the day development givne the chance in his appearance/status during the day during multipel follow ups) ARF - IVF, hold lasix hypotension - IVF, hold lasix and metoprolol encephalopathy - multifactorial hypercapnic respiratory failure - notes baseline poor respiratory mechanics - this + sedation from delirium + late effects of pain meds (hasn't had in hours) + overall fatigue are likely causative --> bipap, repeat gas pending, clinically does look better fall - weakness related concussion - no focal neuro deficits on exam, low threshold to repeat CT head but no focal deficits at this time presumed sepsis from prostatitis - have been unable to check rectal due to risks benefits on pain/positioning/etc - continue empiric abx, - UA + acute LUTS more than enough to warrant presumptive treatment DVT proph - warfarin Resident Involvement: Resident Care Provided Care Provided: Adult Hospital Medicine
[2017-10-20] MEDS: WARFARIN SOD 2 MG TAB PO SCH ×2 (15:19→15:44)
[2017-10-20 16:55] LABS: CREATININE 2.91 mg/dl (0.60-1.40)
[2017-10-20 16:56] LABS: CALCIUM 7.4 mg/dl (8.5-10.1)
--- NOTE | 2017-10-20 19:52 | Orthopedic Progress Note ---
Orthopedic Progress Note Date of Service October 20, 2017. Subjective Denies: complaints, nausea / vomiting Additional Notes: Patient hypersomnolent. No response to questions. Family present and discussed patient care with family. Objective calves soft nontender Hypersomnolent. CPAP mask present. Hyperflexed cervical spine position with anterior flexion contracture. Date Time Temp Pulse Resp B/P (MAP) Pulse Ox O2 Delivery O2 Flow Rate FiO2 10/20/17 16:03 96 BiPAP 10/20/17 15:16 66 17 130/85 (100) 88 Nasal Cannula 4.0 10/20/17 12:06 96 Nasal Cannula 2.0 10/20/17 11:22 54 16 70/44 (53) 93 Nasal Cannula 2.0 10/20/17 10:37 52 92/60 (71) 10/20/17 10:07 36.5 48 63/41 (48) 95 Room Air 10/20/17 08:10 96 Nasal Cannula 2.0 10/20/17 06:49 36.2 60 19 79/55 (63) 96 Nasal Cannula 2.0 10/20/17 04:15 Nasal Cannula 2.0 10/20/17 04:09 36.2 52 19 79/52 (61) 97 Nasal Cannula 2.0 10/20/17 00:30 Nasal Cannula 2.0 10/19/17 23:55 36.2 71 18 99/64 (76) 93 Nasal Cannula 2.0 10/19/17 20:16 36.4 67 18 112/72 (85) 94 Nasal Cannula 2.0 10/19/17 20:15 Nasal Cannula 2.0 Laboratory Results 24 Hours: Test 10/20/17 04:40 White Blood Count 6.74 K/uL Red Blood Count 3.99 M/uL Hemoglobin 12.3 g/dL Hematocrit 38.1 % Mean Corpuscular Volume 95.5 fL Mean Corpuscular Hemoglobin 30.8 pg Mean Corpuscular Hemoglobin Concent 32.3 g/dl Platelet Count 156 K/uL Mean Platelet Volume 10.7 fL Neutrophils (%) (Auto) 60.2 % Lymphocytes (%) (Auto) 27.4 % Monocytes (%) (Auto) 10.2 % Eosinophils (%) (Auto) 1.8 % Basophils (%) (Auto) 0.1 % Neutrophils # (Auto) 4.05 K/uL Lymphocytes # (Auto) 1.85 K/uL Monocytes # (Auto) 0.69 K/uL Eosinophils # (Auto) 0.12 K/uL Basophils # (Auto) 0.01 K/uL Prothromb Time International Ratio 1.6 Prothrombin Time 16.2 SECONDS Assessment & Plan Assessment: 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 Recommend conservative care. Pain management consult if deemed appropriate by Medical Service Thank you for the opportunity to consult in the care of this patient. Will sign off.
[2017-10-20] MEDS: SODIUM CHLORIDE 0.45% 1000ML 1,000 ML IV SCH (20:09)
[2017-10-20] MEDS ORDERED: VANCOMYCIN TROUGH ONE (21:30)
--- NOTE | 2017-10-20 22:17 | DIAGNOSTIC IMAGING REPORT ---
HEAD WITHOUT CONTRAST (CT) CLINICAL HISTORY: 86 years-old Male with dense somnolence, rule out bleed. Acute altered mental status TECHNIQUE: Multiple axial CT images of the head were obtained without contrast. A dose lowering technique was utilized adhering to the principles of ALARA. CT DOSE: 2626.49 mGycm COMPARISON: CT head 10/17/2017. FINDINGS: Motion degraded exam. Moderate atrophy with moderate chronic microvascular ischemic changes. Senescent calcifications of the lentiform nuclei. Cerebral vascular calcifications are seen at the level the skull base. No acute intracranial hemorrhage, midline shift, intracranial mass, hydrocephalus, territorial ischemia or abnormal extra-axial collection. The calvarium is intact. 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 The paranasal sinuses, mastoid air cells, and middle ear cavities are clear. IMPRESSION: Motion degraded exam without acute intracranial abnormality identified. The above report was generated using voice recognition software. It may contain grammatical, syntax or spelling errors. Electronically signed by: Papa Gates M.D. 10/20/2017 10:15 PM Dictated Date/Time: 10/20/2017 10:13 PM
[2017-10-20 23:31] LABS: CREATININE 3.21 mg/dl (0.60-1.40); POTASSIUM 6.6 mmol/L (3.5-5.1)
[2017-10-21 00:03] VITALS: BP 131/67; PULSE 63; TEMP 36; O2SAT 95
[2017-10-21] MEDS ORDERED: CALCIUM GLUCONATE 10% 1,000 MG in SODIUM CHLORIDE 0.9% 50ML 50 ML IV STA (00:03)
[2017-10-21] MEDS ORDERED: INSULIN HUMAN REGULAR PER UNIT 10 UNITS in SYRINGE 9.9 ML IV STA (00:11)
[2017-10-21] MEDS ORDERED: DEXTROSE 50% 50 ML SYR IV ONE (00:15)
[2017-10-21] MEDS: SODIUM CHLORIDE 0.45% 1000ML 1,000 ML IV SCH (02:09)
[2017-10-21 02:12] LABS: CALCIUM 7.3 mg/dl (8.5-10.1); CREATININE 3.4 mg/dl (0.60-1.40)
[2017-10-21 04:22] VITALS: BP 93/56; PULSE 60; TEMP 36.7; O2SAT 94
[2017-10-21] MEDS: ACETAMINOPHEN 500 MG TAB PO SCH (05:46)
[2017-10-21] MEDS: PIPERACILL/TAZOBAC IV 3.375 GM in NSS 100ML IV SCH (06:00)
[2017-10-21 06:56] LABS: HEMATOCRIT 37.7 % (42-52); IG# 0.04 K/uL (0.00-0.02); LYMPH % 9.7 %; LYMPH ABS # 1.01 K/uL (1.2-3.4); MEAN CELL VOLUME 95.7 fL (80-100); MEAN CORPUSCULAR HEMOGLOBIN 30.5 pg (25-34); MEAN CORPUSCULAR HGB CONC 31.8 g/dl (32-36); MEAN PLATELET VOLUME 11.1 fL (7.4-10.4); MONO % 7.1 %; MONO ABS # 0.74 K/uL (0.11-0.59); NEUT % 82.8 %; PLATELET COUNT 153 K/uL (130-400); RED CELL DISTRIBUTION WIDTH CV 15.5 % (11.5-14.5); RED CELL DISTRIBUTION WIDTH SD 54.6 fL (36.4-46.3); WHITE BLOOD COUNT 10.39 K/uL (4.8-10.8)
[2017-10-21 07:08] LABS: INR 2.1 (0.9-1.1)
[2017-10-21 07:14] VITALS: BP 73/48; PULSE 66; O2SAT 96
[2017-10-21 07:27] LABS: CALCIUM 7.2 mg/dl (8.5-10.1); CREATININE 3.34 mg/dl (0.60-1.40); POTASSIUM 6.2 mmol/L (3.5-5.1)
[2017-10-21] MEDS ORDERED: LORAZEPAM 2 MG/ML 1 ML VIAL IV PRN (07:30)
[2017-10-21] MEDS ORDERED: MoRPHine SULFATE 4 MG/ML 1 ML CARP\\VIAL IV ONE (07:30)
[2017-10-21] MEDS ORDERED: LORAZEPAM INJ 0.5 MG in SYRINGE 0.25 ML IV PRN (07:30)
[2017-10-21] MEDS ORDERED: MoRPHine SULFATE 4 MG/ML 1 ML CARP\\VIAL IV PRN (07:30)
--- NOTE | 2017-10-21 09:34 | Death Summary ---
Summary of Admission Date October 17, 2017 at 23:55 Date & Time of October 21, 2017. 0820 Cause of multisystem organ failure Hospital Course admitted after a fall at home - weak in general and having a steep decline over the last few months. multiple issues identified during his hospital stay, and unfortunately as one dx would stabilize, an additional 1-2 others would emerge. eventually his comorbid burden became exceedingly large and it was clear that passing was imminent. also at this time he appeared much more uncomfortable and family unanimously agreed with comfort measures above all else. he then passed quickly and peacefully 820am 10/21/17 last note from 10/20 for a picture of his comorbidities: Patient Name: JESSICA MCGOVERN Admit Date: 10/17/1804/01/18 [facility] Rec: [id number] Att Phy: Mckinley Wiggins D.O. Acct ID: [id number] [facility] Phy: Cayetano Conway M.D. Date: 1930 [facility] Phy: Cayetano Conway M.D. Age: 86 Location: [facility] Sex: M Room/Bed: N277-2 CC: *NOTICE TO RECEIVING [employer]/AGENCY This information is strictly Confidential and protected under [place] law. [place] law prohibits you from making any further disclosure of this information unless further disclosure is expressly permitted by the written consent of the person to whom it pertains or is authorized by law. A general authorization for the release of medical or other information is not sufficient for this purpose. Hospital accepts no responsibility if the information is made available to any other person, INCLUDING THE PATIENT. Progress Note Date of Service October 20, 2017. Subjective Pt evaluation today including: conversation w/ patient, physical exam, chart review, lab review Pain: reports improved PO Intake: not tolerating diet Voiding: douglas catheter in place This AM pt was very drowsy however noted to feeling better and reported improved pain. Per nursing, BP in the 60-70s/40-50s range Constitutional: No fever Respiratory: + shortness of breath Cardiovascular: No chest pain Abdomen: No pain, No nausea, No vomiting Musculoskeletal: + problem reported (neck, shoulder and R arm pain) Medications Current Inpatient Medications Medications (Trade) Dose Ordered Sig/Shani Route Start Time Stop Time Status Last Admin Dose Admin Ioversol (Optiray 320) 100 ml UD PRN IV 10/17/17 18:00 10/21/17 17:59 Al Hydrox/Mg Hydrox/Simethicone (Maalox Max Susp) 15 ml Q4H PRN PO 10/17/17 23:30 11/16/17 23:29 Magnesium Hydroxide (Milk Of Magnesia Susp) 30 ml Q6H PRN PO 10/17/17 23:30 11/16/17 23:29 Polyethylene (Miralax Powder Packet) 17 gm DAILY PRN PO 10/17/17 23:30 11/16/17 23:29 Ondansetron HCl (Zofran Inj) 4 mg Q6H PRN IV 10/17/17 23:30 11/16/17 23:29 Metoprolol Succinate (Toprol Xl Tab) 50 mg DAILY PO 10/18/17 09:00 11/17/17 08:59 Future Hold 10/19/17 07:44 50 MG Phenytoin Sodium (Dilantin Er Cap) 100 mg QPM PO 10/18/17 21:00 11/17/17 20:59 10/19/17 20:47 100 MG Phenytoin Sodium (Dilantin Er Cap) 200 mg QAM PO 10/18/17 09:00 11/17/17 08:59 10/20/17 08:16 200 MG Potassium Chloride (Klor-Con Tab) 40 meq BID PO 10/18/17 09:00 11/17/17 08:59 Future Hold Miscellaneous Information (Consult) 1 ea UD PRN N/A 10/17/17 23:30 11/16/17 23:29 Furosemide 40 mg/ Syringe 4 ml @ 4 mls/min DAILY IV 10/18/17 09:00 11/17/17 08:59 Future Hold 10/18/17 08:01 4 MLS/MIN Piperacillin Sod/ Tazobactam Sod 3.375 gm/Sodium Chloride 115 ml @ 28.75 mls/ hr Q8H IV 10/18/17 06:00 10/25/17 05:59 5/4/18 06:26 28.75 MLS/HR Acetaminophen (Tylenol Tab) 1,000 mg Q8H PO 10/18/17 22:00 11/17/17 21:59 10/20/17 06:26 1,000 MG Lidocaine (Lidoderm Patch 5%) 1 patch QAM TD 10/18/17 13:45 11/17/17 13:44 10/20/17 08:16 1 PATCH Miscellaneous (Remove Lidoderm Patch) 1 ea DAILY@21 N/A 10/18/17 21:00 11/17/17 20:59 10/19/17 20:46 1 EA Sodium Chloride ([place] Nasal [place]) 1 sprays PRN PRN NA 10/18/17 17:00 11/17/17 16:59 10/18/17 23:15 1 SPRAYS Dorzolamide HCl (Trusopt 2% Oph Soln) 1 drops BID OPB 10/18/17 21:00 11/17/17 20:59 10/20/17 08:16 1 DROPS Diclofenac Sodium (Voltaren 1% Top Gel) 1 appln BID PRN EXT 10/18/17 22:15 11/17/17 22:14 10/18/17 23:12 1 APPLN Tramadol HCl (Ultram Tab) 25 mg Q4H PO 10/19/17 12:30 11/18/17 00:29 Future Hold 10/20/17 00:14 25 MG Naloxone HCl (Narcan Inj) 0.4 mg UD PRN IV 10/19/17 11:00 11/18/17 10:59 Gabapentin (Neurontin Cap) 300 mg HS PO 10/19/17 21:00 11/18/17 20:59 Future Hold 10/19/17 20:47 300 MG Warfarin Sodium (Coumadin Tab) 2 mg DAILY@16 PO 10/19/17 16:00 11/18/17 15:59 10/19/17 16:16 2 MG Morphine Sulfate (MoRPHine SULFATE INJ) 2 mg Q4 PRN IV 10/20/17 10:00 11/02/17 10:59 Potassium Chloride/Sodium Chloride 1,000 ml @ 125 mls/hr Q8H IV 10/20/17 10:30 11/19/17 10:29 10/20/17 10:48 125 MLS/HR Objective Vital Signs Date Time Temp Pulse Resp B/P (MAP) Pulse Ox O2 Delivery O2 Flow Rate FiO2 10/20/17 12:06 96 Nasal Cannula 2.0 10/20/17 11:22 54 16 70/44 (53) 93 Nasal Cannula 2.0 10/20/17 10:37 52 92/60 (71) 10/20/17 10:07 36.5 48 63/41 (48) 95 Room Air 10/20/17 08:10 96 Nasal Cannula 2.0 10/20/17 06:49 36.2 60 19 79/55 (63) 96 Nasal Cannula 2.0 10/20/17 04:15 Nasal Cannula 2.0 10/20/17 04:09 36.2 52 19 79/52 (61) 97 Nasal Cannula 2.0 10/20/17 00:30 Nasal Cannula 2.0 10/19/17 23:55 36.2 71 18 99/64 (76) 93 Nasal Cannula 2.0 10/19/17 20:16 36.4 67 18 112/72 (85) 94 Nasal Cannula 2.0 10/19/17 20:15 Nasal Cannula 2.0 10/19/17 16:00 Nasal Cannula 2.0 10/19/17 15:38 36.6 76 18 106/67 (80) 98 Nasal Cannula 2.0 Physical Exam General Appearance: + mild distress Eyes: normal inspection Respiratory/Chest: lungs clear, + decreased breath sounds, + pertinent finding (improved WOB) Cardiovascular: no murmur, + bradycardia, + irregularly irregular Abdomen: normal bowel sounds, non tender, soft Extremities: non-tender, + swelling (1+ LLE and trace RLE edema) Neurologic/Psychiatric: + pertinent finding (drowsy) Skin: + pertinent finding (chronic venous stasis skin changes LEs) Laboratory Results 10/20/17 04:40 Red Blood Count 3.99, Mean Corpuscular Volume 95.5, Mean Corpuscular Hemoglobin 30.8, Mean Corpuscular Hemoglobin Concent 32.3, Mean Platelet Volume 10.7, Neutrophils (%) (Auto) 60.2, Lymphocytes (%) (Auto) 27.4, Monocytes (%) (Auto) 10.2, Eosinophils (%) (Auto) 1.8, Basophils (%) (Auto) 0.1, Neutrophils # (Auto ) 4.05, Lymphocytes # (Auto) 1.85, Monocytes # (Auto) 0.69, Eosinophils # (Auto ) 0.12, Basophils # (Auto) 0.01 10/20/17 04:40 Test 10/20/17 04:40 White Blood Count 6.74 K/uL (4.8-10.8) Red Blood Count 3.99 M/uL (4.7-6.1) Hemoglobin 12.3 g/dL (14.0-18.0) Hematocrit 38.1 % (42-52) Mean Corpuscular Volume 95.5 fL (80-100) Mean Corpuscular Hemoglobin 30.8 pg (25-34) Mean Corpuscular Hemoglobin Concent 32.3 g/dl (32-36) Platelet Count 156 K/uL (130-400) Mean Platelet Volume 10.7 fL (7.4-10.4) Neutrophils (%) (Auto) 60.2 % Lymphocytes (%) (Auto) 27.4 % Monocytes (%) (Auto) 10.2 % Eosinophils (%) (Auto) 1.8 % Basophils (%) (Auto) 0.1 % Neutrophils # (Auto) 4.05 K/uL (1.4-6.5) Lymphocytes # (Auto) 1.85 K/uL (1.2-3.4) Monocytes # (Auto) 0.69 K/uL (0.11-0.59) Eosinophils # (Auto) 0.12 K/uL (0-0.5) Basophils # (Auto) 0.01 K/uL (0-0.2) RDW Standard Deviation 55.2 fL (36.4-46.3) RDW Coefficient of Variation 15.7 % (11.5-14.5) Immature Granulocyte % (Auto) 0.3 % Immature Granulocyte # (Auto) 0.02 K/uL (0.00-0.02) Prothrombin Time 16.2 SECONDS (9.0-12.0) Prothromb Time International Ratio 1.6 (0.9-1.1) Anion Gap 2.0 mmol/L (3-11) Est Creatinine Clear Calc Drug Dose 22.8 ml/min Estimated GFR () 23.9 Estimated GFR (Non- 20.6 BUN/Creatinine Ratio 29.0 (10-20) Calcium Level 7.7 mg/dl (8.5-10.1) Assessment and Plan 86 yo M with hx of Afib on Coumadin, HTN, and arthritis presented after a fall with LOC. Negative head CT with no concern for acute fracture based on Ct chest , C-spine, T-spine and L-spine. Found to have hairline R shoulder cortical fracture in inferior glenoid region. Initial concern for SIRS given hypothermia (now improved temp of 36.5), low BP and hypoxia (new onset). No concern for pneumonia at this point. Hx and UA concerning for possible UTI vs. prostatitis. UCx neg. BCx NGTD. On empiric abx. TODAY BP low in 60-70s/40-50s and HR in the 30s-50s range but improved to 130/ 70 and HR improved to 60s by the afternoon after 3L of IVF bolus and mIVF at 125mls/hr. Likely hypovolemic in the setting of initial Lasix and decreased PO intake. Concern for sepsis given hypothermia (improved), hypotension (imp) and new onset hypoxia in the setting of +UA - UA > 30 WBC, large leuk esterase and 1+ occult blood - UCx neg - BCx NGTD - Chest CT no pneumonia noted - On zosyn empirically; also received vanc x 2 days - Ordered incentive spirometer - Received 3L IVF bolus today for worsneing hypotension likely in the setting of hypovolemia from decreased PO intake and recent Lasix use - Continue mIVF at 125mls/hr - monitor CBC and vitals Hematuria likely in the setting of UTI vs. prostatitis vs. trauma (urine clear now) - urinary hesitancy hx and positive UA - UCx neg - possibly related to bladder outlet obstruction from BPH - defer prostate exam given significant discomfort at this time - continue to monitor B/l LE edema consistent with chronic venous stasis vs. CHF vs. cellulitis - Exam consistent with chronic venous stasis skin changes, no increased warmth or TTP of skin; edema improved from 3+ to 1+ - ECHO: EF > 70%, hyperdynamic LV - MRSA swab negative - BCx NGTD - Continue empiric Zosyn - Lasix 40mg IV received x 1 with improvement (DC and place home lasix on hold given increase in Cr and hypovolemia) History of Fall with concussion given hx of LOC and retrograde amnesia - possibly mechanical vs. vagal response given nurse dressing legs at the time vs. 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 - R shoulder xray concerning for hairline cortical fx inferior to glenoid; post arthroplasty - ortho consulted, sling ordered - Pain control - Tramadol 25mg Q4H shani - HOLDING FOR HYPOTENSION TODAY - Morphine 2mg IV Q4H PRN - Tylenol 1000mg Q8H - Lidocaine 5% patch QAM - Gabapentin 300mg QHS - HOLDING FOR HYPOTENSION AND DROWSINESS TODAY HTN - low BP concern for SIRS/Sepsis - improving s/p IVF - BP controlled - HOLD Metoprolol 50mg daily - given low BP today Afib - rate controlled - Holding Metoprolol 50mg daily - On coumadin 2mg daily Seizure disorder - Continue home phenytoin 200mg QAM and 100mg QPM Ambulatory dysfunction - gradually declining ambulation, requiring wheel chair - generalized weakened and severe arthritis - 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 Family planning on hospice care for comfort care since health declining since jul 2017 Resident Physician Supervision Note: I interviewed and examined the patient. Discussed with Dr. Godfrey and agree with findings and plan as documented in the note. Any exceptions or clarifications are listed here: None Documented By: Mckinley Wiggins no meaningful HPI or ROS obtainable from pt seen many many times today (?actual number, but many) first visit somewhat responsive but non meaningful vocalizations, later was much more somnolent wtih shallow breathing, later more alert thrashing w bipap extensively updated family throughout the day as well viatls noted see above, lungs clear but quiet heart distant no pallor or icterus , skin color actually better than yesterday, abd soft nd nt exam otherwise as above somnolence - delirium + ARF + hypercapnic respiratory failure (suspect was a late in the day development givne the chance in his appearance/status during the day during multipel follow ups) ARF - IVF, hold lasix hypotension - IVF, hold lasix and metoprolol encephalopathy - multifactorial hypercapnic respiratory failure - notes baseline poor respiratory mechanics - this + sedation from delirium + late effects of pain meds (hasn't had in hours) + overall fatigue are likely causative --> bipap, repeat gas pending, clinically does look better fall - weakness related concussion - no focal neuro deficits on exam, low threshold to repeat CT head but no focal deficits at this time presumed sepsis from prostatitis - have been unable to check rectal due to risks benefits on pain/positioning/etc - continue empiric abx, - UA + acute LUTS more than enough to warrant presumptive treatment DVT proph - warfarin Resident Involvement: Resident Care Provided Care Provided: [facility] <Electronically signed by Rex Godfrey M.D.> <Electronically signed by Mckinley Wiggins D.O.> Signed: 10/20/17 1514 Signed: 10/20/172041 The status of this report is Signed * If report status is Draft, the document has not been finalized by the responsible provider. Addendum: 10/20/172043 Addendum: Mckinley Wiggins D.O. on 10/20/17 @ 20:44 Addendum Section >30mins critical care time across many many visits today <Electronically signed by Mckinley Wiggins D.O.> 10/20/172043 Addendum: 10/20/172131 Addendum: Mckinley Wiggins D.O. on 10/20/17 @ 21:32 Addendum Section revisited again densely somnolent no response to verbal or sternal rub lungs clear actually better air entry than earlier no focal neuro signs but no cooperation for full exam, equal muscle tone stat CT head rule out bleed await repeat gas discussed concerning prognosis with family - they express appreciation of care and understanding of situation <Electronically signed by Mckinley Wiggins D.O.> 10/20/172131
== END 2017-10-21 10:15 | disposition expired | DRG 871 ==
LOC: EDBD 16:05 → C.EDC 16:08 → C.MED 23:55 → ENRESERV 10-18 00:20
PROVIDERS: ADMIT Hospitalist; ATTEND Family Medicine
PROC: 0NQ Head and Facial Bones, Repair (ICD-10-PCS; principal; 2017-10-17)
DX: A41.9 Sepsis, unspecified organism (principal); G93.40 Encephalopathy, unspecified; J96.92 Respiratory failure, unspecified with hypercapnia; L03.115 Cellulitis of right lower limb; N39.0 Urinary tract infection, site not specified; N17.9 Acute kidney failure, unspecified; S06.0X9A Concussion with loss of consciousness of unspecified duration, initial encounter; Z82.49 Family history of ischemic heart disease and other diseases of the circulatory system; Z79.01 Long term (current) use of anticoagulants; W19.XXXA Unspecified fall, initial encounter; S09.90XA Unspecified injury of head, initial encounter; S01.81XA Laceration without foreign body of other part of head, initial encounter; R06.02 Shortness of breath; N18.9 Chronic kidney disease, unspecified; I48.91 Unspecified atrial fibrillation; R31.9 Hematuria, unspecified; R60.9 Edema, unspecified; G40.909 Epilepsy, unspecified, not intractable, without status epilepticus; R26.9 Unspecified abnormalities of gait and mobility; R29.6 Repeated falls; N41.9 Inflammatory disease of prostate, unspecified